=== PATIENT | female | born 1945 | race Caucasian/White ===

== ENCOUNTER → 2017-12-14 | Outpatient (REF) | payer MEDICARE ==
[2017-12-14 18:00] LABS: INFLUENZA A AMPLIFICATION NEGATIVE (NEGATIVE); INFLUENZA B AMPLIFICATION NEGATIVE (NEGATIVE)
== END ==
LOC: M LAB REF 17:08
DX: R05 Cough (principal); R50.9 Fever, unspecified
CPT/HCPCS: 87502

== ENCOUNTER 2020-01-26 08:49 | Day surgery (SDC) | payer MEDICARE ==
[~2020-01-26] VITALS: Ht 170.2 cm; Wt 72.1 kg
[~2020-01-26 08:49] MED LIST: ALFA250T PO; ALLE180T33 PO; ATRO0.06 NEB; CALC-190 PO; EQL50TAB2 PO; LECI1CAP PO; LIVA2TAB PO; MONT10TA4 PO; MULTCAP PO; NS 1,000 ML IV ONE; No Historical Meds; PRED10TA2 OR; PRED20TA OR; PRED50TA OR; SPIR1CAP INH; SYMB80AE IN; SYMB80INH INH; VITA-157 PO; VITA500C24 PO; XOPE1.252 IN; ZITH500T OR; [UNRECOGNIZED DRUG - OTHER] PO
[2020-01-26] MEDS ORDERED: propofoL 200 MG/20 ML VIAL As Ordered ONE ×2 (11:01→11:37)
--- NOTE | 2020-01-26 11:49 | ROOR ---
Patient Name: Bora Tan Procedure Date: 01/26/2020 10:55 AM Date of : 1945 Age: 74 Room: [facility] Gender: Female Note Status: Finalized Procedure: Colonoscopy Indications: Positive fecal immunochemical test Providers: Silverio Kemp Jr, MD Referring MD: Disha Quesada DO Requesting Provider: Medicines: Propofol per Anesthesia Complications: No immediate complications. Procedure: Pre-Anesthesia Assessment: - Prior to the procedure, a History and Physical was performed, and patient medications and allergies were reviewed. The patient is competent. The risks and benefits of the procedure and the sedation options and risks were discussed with the patient. All questions were answered and informed consent was obtained. Patient identification and proposed procedure were verified by the physician and the nurse in the pre-procedure area and in the procedure room. Mental Status Examination: alert and oriented. Airway Examination: normal oropharyngeal airway and neck mobility. Respiratory Examination: clear to auscultation. CV Examination: normal. ASA Grade Assessment: II - A patient with mild systemic disease. After reviewing the risks and benefits, the patient was deemed in satisfactory condition to undergo the procedure. The anesthesia plan was to use moderate sedation / analgesia (conscious sedation). Immediately prior to administration of medications, the patient was re-assessed for adequacy to receive sedatives. The heart rate, respiratory rate, oxygen saturations, blood pressure, adequacy of pulmonary ventilation, and response to care were monitored throughout the procedure. The physical status of the patient was re-assessed after the procedure. The Colonoscope was introduced through the anus and advanced to the cecum, identified by appendiceal orifice and ileocecal valve. The colonoscopy was performed without difficulty. The patient tolerated the procedure well. The quality of the bowel preparation was adequate. Findings: The descending colon, transverse colon, cecum, appendiceal orifice and ileocecal valve appeared normal. Four polyps were found in the rectum, transverse colon and ascending colon. The polyps were small in size. These polyps were removed with a hot snare. Resection and retrieval were complete. A medium polyp was found in the ascending colon. The polyp was sessile. The polyp was removed with a hot snare. The polyp was removed with a piecemeal technique using a hot snare. Resection was complete, but the polyp tissue was only partially retrieved. A medium polyp was found in the recto-sigmoid colon. The polyp was semi-sessile. The polyp was removed with a hot snare. Resection and retrieval were complete. A medium polyp was found in the recto-sigmoid colon. The polyp was pedunculated. The polyp was removed with a hot snare. Resection and retrieval were complete. Impression: - The descending colon, transverse colon, cecum, appendiceal orifice and ileocecal valve are normal. - Four small polyps in the rectum, in the transverse colon and in the ascending colon, removed with a hot snare. Resected and retrieved. - One medium polyp in the ascending colon, removed with a hot snare and removed piecemeal using a hot snare. Complete resection. Partial retrieval. - One medium polyp at the recto-sigmoid colon, removed with a hot snare. Resected and retrieved. - One medium polyp at the recto-sigmoid colon, removed with a hot snare. Resected and retrieved. Recommendation: - Repeat colonoscopy date to be determined after pending pathology results are reviewed for surveillance based on pathology results. Silverio Kemp MD Silverio Kemp Jr, MD 01/26/2020 11:49:06 AM Electronically signed by Silverio Kemp Jr, MD Number of Addenda: 0 Note Initiated On: 01/26/2020 10:55 AM Estimated Blood Loss: Estimated blood loss: none.
[2020-01-26 12:17] VITALS: BP 147/89
== END 2020-01-26 12:18 | disposition home or self-care (01) ==
LOC: M OPP 08:49
PROVIDERS: ATTEND Surgery
DX: K62.1 Rectal polyp (principal); D12.3 Benign neoplasm of transverse colon; D12.2 Benign neoplasm of ascending colon; D12.7 Benign neoplasm of rectosigmoid junction; R19.5 Other fecal abnormalities; G47.30 Sleep apnea, unspecified; J44.9 Chronic obstructive pulmonary disease, unspecified; Z79.899 Other long term (current) drug therapy; Z88.0 Allergy status to penicillin; Z87.891 Personal history of nicotine dependence

== ENCOUNTER 2020-07-11 16:55 | Inpatient (IN) | payer MEDICARE ==
[~2020-07-11] VITALS: Ht 170.2 cm; Wt 72.5 kg
[~2020-07-11 16:55] MED LIST changes: -NS 1,000 ML IV ONE
[2020-07-11] MEDS ORDERED: NS 1,000 ML IV ONE (17:45)
[2020-07-11] MEDS ORDERED: ACETAMINOPHEN 325 MG TAB PO ONE (18:00)
[2020-07-11 18:24] LABS: BASO % 0.2 % (0.0-1.0); HEMOGLOBIN 14.5 g/dl (12.0-15.5); LYMPH # 0.6 10^3/uL (1.5-5.0); LYMPH % 3.4 % (24.0-44.0); MEAN CORPUSCULAR HEMOGLOBIN 29.7 pg (27.0-33.0); MEAN CORPUSCULAR HGB CONC 31.5 g/dl (32.0-36.5); MEAN CORPUSCULAR VOLUME 94.3 fl (80.0-96.0); MONO # 0.8 10^3/uL (0.0-0.8); MONO % 4.8 % (0.0-5.0); NEUTROPHILS # 15.1 10^3/uL (1.5-8.5); NEUTROPHILS % 91.1 % (36.0-66.0); PLATELET COUNT, AUTOMATED 198 10^3/uL (150-450); RED BLOOD COUNT 4.88 10^6/uL (4.00-5.40); WHITE BLOOD COUNT 16.6 10^3/uL (4.0-10.0)
[2020-07-11] MEDS ORDERED: ISOVUE-370 76% 100ML VIAL As Ordered ONE (18:26)
[2020-07-11 18:39] LABS: ALBUMIN 3.5 GM/DL (3.2-5.2); BILIRUBIN,DIRECT 0.2 MG/DL (0.0-0.2); BILIRUBIN,TOTAL 0.6 MG/DL (0.2-1.0); C REACTIVE PROTEIN QUANTITATIV 7.03 MG/DL (0.00-0.30)
--- NOTE | 2020-07-11 18:51 | REPVR ---
PROCEDURE INFORMATION: Exam: CT Temporal Bones With Contrast. Exam date and time: 07/11/2020 6:32 PM Age: 75 years old Clinical indication: Pain; Other: Ear; Additional info: Swelling/rednes/pain left ear/mastoid TECHNIQUE: Imaging protocol: Computed tomography images of the temporal bones with intravenous contrast. Radiation optimization: All CT scans at this facility use at least one of these dose optimization techniques: automated exposure control; mA and/or kV adjustment per patient size (includes targeted exams where dose is matched to clinical indication); or iterative reconstruction. Contrast material: ISO 370; Contrast volume: 75 ml; Contrast route: INTRAVENOUS (IV); COMPARISON: No relevant prior studies available. FINDINGS: Right inner ear: Normal. Right ossicles and middle ear: Normal. The middle ear ossicles are intact. Right external auditory canal: Skin thickening demonstrated along the helix of the ear, extending posteriorly along the eminence of the triangular fossa and harrison, and associated with thickening of the skin of the external auditory canal. 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 Primary infection of the ear not excluded. Right facial nerve canal: Normal. Right jugular foramen: No jugular dehiscence. Right carotid canal: No aberrent carotid canal. Right mastoid air cells: Normal. No mastoid effusions. Left inner ear: Normal. Left ossicles and middle ear: See "Right external auditory canal" finding. Left external auditory canal: Normal. Left facial nerve canal: Normal. Left jugular foramen: No jugular dehiscence. Left carotid canal: No aberrent carotid canal. Left mastoid air cells: Normal. No mastoid effusions. Orbits: Opacified left frontoethmoidal complex. Sinuses: Small retention cyst right maxillary sinus. Mild bilateral ethmoid sinusitis. Bones/joints: Degenerative changes C1-C2. Soft tissues: Unremarkable. IMPRESSION: Skin thickening demonstrated along the helix of the ear, extending posteriorly along the eminence of the triangular fossa and harrison, and associated with thickening of the skin of the external auditory canal. 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 Primary infection of the ear not excluded. Electronically signed by: Anselmo Reyes On 07/11/2020 18:51:33 PM
[2020-07-11 19:05] LABS: ERYTHROCYTE SEDIMENTATION RATE 17 mm/hr (0-30)
[2020-07-11] MEDS ORDERED: cefTAZidime 1 GM in D5W MINI-BAG PLUS 50 ML IV ONE (19:45)
[2020-07-11] MEDS ORDERED: MAALOX 30 ML SUSP *UDC PO PRN (20:15)
[2020-07-11] MEDS ORDERED: MOM 30ML SUSPENSION UDC PO PRN (20:15)
[2020-07-11] MEDS ORDERED: ACETAMINOPHEN TAB 650MG DOSE (2X325MG) PO PRN (20:15)
[2020-07-11] MEDS ORDERED: SODIUM CHLORIDE 0.9% 1000ML IV SCH (20:15)
[2020-07-11] MEDS ORDERED: ACET-683 PO (20:33)
[2020-07-11 20:40] LABS: INR 0.99; PROTHROMBIN TIME 13.3 SECONDS (11.8-14.0)
--- NOTE | 2020-07-11 22:53 | HPEPDOC ---
[facility] Medical History & Physical Date of Admission Jul 11, 2020 Date of Service: Jul 11, 2020 Primary Care Physician: CHI ALBA DO Attending Physician: JERARDO ACE MD History and Physical TIME OF SERVICE: 935pm CHIEF COMPLAINT: ear pain HISTORY OF PRESENT ILLNESS: This patient presented w c/o of left ear itching which didnt improve w cortisol cream. She is unable to remember how long she has had that symptom, but today she developed ear swelling, pain and redness along w f/c and a headache affecting the back of her head. She denies having discharge from her ears, c/ n/v/d or sweating. CT showed malignant otitis externa; ORTEGA Jacobsen discussed the case w who recommended ciprodrex and abx. 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 HOME MEDICATIONS: Please see below. PHYSICAL EXAM Vital Signs Date Time Temp Pulse Resp B/P (MAP) Pulse Ox O2 Delivery O2 Flow Rate FiO2 07/11/20 16:55 102.1 102 18 138/65 (89) 92 Room Air GENERAL APPEARANCE: well-nourished / well developed /NAD INTEGUMENT: the left ear and surrounding area are red HEENT: no scleral icterus / left ear is red, warm and swollen, w palpable preauricular LN, no + light reflex in left ear no discharge coming out of left ear / toung midline, tonsils not hyperemic or enlarged CARDIOVASCULAR: RRR/NMRG / radial pulses intact LUNGS: CTAB on RA MUSCULOSKELETAL: JOSESITO x 4 NEUROLOGICAL: CN -12 intact / speech not dysarthric PSYCHIATRIC: A&Ox 3 /able to understand and follow all commands LABORATORY DATA: 07/11/20 17:43 Immature Granulocyte % (Auto) 0.5, Neutrophils (%) (Auto) 91.1H, Lymphocytes (%) (Auto) 3.4L, Monocytes (%) (Auto) 4.8, Eosinophils (%) (Auto) 0.0, Basophils (%) (Auto) 0.2, Neutrophils # (Auto) 15.1H, Lymphocytes # (Auto) 0.6L, Monocytes # (Auto) 0.8, Eosinophils # (Auto) 0.0, Basophils # (Auto) 0.0, Nucleated Red Blood Cells % (auto) 0.0, Erythrocyte Sedimentation Rate 17, Lactic Acid Level 1.3, Total Bilirubin 0.6, Direct Bilirubin 0.2, Aspartate Amino Transf (AST/SGOT) 27, Alanine Aminotransferase (ALT/SGPT) 24, Alkaline Phosphatase 68, C-Reactive Protein, Quantitative 7.03H, Total Protein 7.0, Albumin 3.5, Albumin/Globulin Ratio 1.0L 07/11/20 20:25: Prothrombin Time 13.3, Prothromb Time International Ratio 0.99 IMAGING: CT head IMPRESSION: Skin thickening demonstrated along the helix of the ear, extending posteriorly along the eminence of the triangular fossa and harrison, and associated with thickening of the skin of the external auditory canal. 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 PLAN: 1 Sepsis 2/2 malignant otitis externa SIRS criterial fever, tachycardia and leukocytosis. CRP elevated, lactic acid wnl Plan: admit to PCU / keep HOBE to 30 degrees / consult / IVF / meropenem and vanc (bc of PCN allergy), Ciprodex ear drops / f/u blood cx / acetaminophen for fever and pain 2 COPD Plan: Symbicort, Spiriva and montelukast 3 Dyslipidemia Plan: pravastatin DVT Px w Lovenox Dispo: home after more than 2 midnights stay Home Medications Scheduled Clinton (Clinton) 250 Mg Tablet, 250 MG PO DAILY Budesonide/Formoterol (Symbicort 80-4.5 Mcg Inhaler) 6.9 Gm Hfa.aer.ad, 2 PUFF INH BID Calcium Carbonate/Vitamin D3 (Calcium 1,000 + D3 Caplet) 1 Each Tablet, 1 TAB PO DAILY Lecithin, Soy (Lecithin) 400 Mg Capsule, 400 MG PO DAILY Montelukast Sodium (Montelukast Sodium) 10 Mg Tablet, 10 MG PO DAILY Multivitamin (Multivitamins) 1 Each Capsule, 1 CAP PO DAILY Pitavastatin Calcium (Livalo) 2 Mg Tablet, 2 MG PO DAILY Tiotropium [place] (Spiriva) 18 Mcg Cap.w.dev, 18 MCG INH DAILY Vitamin B Complex (Vitamin B Complex) 1 Each Tablet, 1 TAB PO DAILY Vitamin E (Dl,Tocopheryl Acet) (Vitamin E) 400 Unit Capsule, 400 UNIT PO DAILY Scheduled PRN Acetaminophen (Acetaminophen) 500 Mg Tablet, 500 MG PO Q6H PRN for PAIN / FEVER Allergies Coded Allergies: Penicillins (Verified Allergy, Intermediate, hives, 01/23/20) A-FIB/CHADSVASC A-FIB History Current/History of A-Fib/PAF?: No Current PO Anticoag Therapy: JERARDO Wilson MD Jul 11, 2020 22:53
[2020-07-11] MEDS ORDERED: NS 1,000 ML IV SCH (23:00)
[2020-07-12] MEDS ORDERED: MEROPENEM INJ 1 GM in IV 1 EA IV SCH ×2
[2020-07-12] MEDS: CIPRODEX OTIC SUSP 7.5ML AS SCH ×3 (00:09→23:51)
[2020-07-12] MEDS ORDERED: VANCOMYCIN HCL 750 MG, VIAL MATE ADAPTER 1 EACH in D5W 250 ML IV ONE ×2 (01:00→02:00)
[2020-07-12 01:27] LABS: CALCIUM LEVEL 9.1 MG/DL (8.8-10.2); CREATININE FOR GFR 1.28 MG/DL (0.55-1.30); POTASSIUM SERUM 3.9 MEQ/L (3.5-5.1)
[2020-07-12] MEDS: SYMBICORT 80/4.5MCG INHALER 6GM INH SCH ×3 (02:15→20:00)
[2020-07-12 07:35] LABS: HEMATOCRIT 43.3 % (36.0-47.0); HEMOGLOBIN 13.5 g/dl (12.0-15.5); MEAN CORPUSCULAR HEMOGLOBIN 29.9 pg (27.0-33.0); MEAN CORPUSCULAR HGB CONC 31.2 g/dl (32.0-36.5); PLATELET COUNT, AUTOMATED 164 10^3/uL (150-450); RED BLOOD COUNT 4.51 10^6/uL (4.00-5.40)
[2020-07-12] MEDS: TIOTROPIUM INHALER/CAPSULE (SPIRIVA) INH SCH (07:38)
[2020-07-12 07:56] LABS: CALCIUM LEVEL 8.3 MG/DL (8.8-10.2); CREATININE FOR GFR 1.03 MG/DL (0.55-1.30); GLOMERULAR FILTRATION RATE 55.3 (>39); MAGNESIUM LEVEL 1.9 MG/DL (1.8-2.4); POTASSIUM SERUM 4.1 MEQ/L (3.5-5.1)
[2020-07-12] MEDS: MONTELUKAST 10 MG TAB PO SCH (08:58)
[2020-07-12] MEDS: ATORVASTATIN 20 MG TAB PO SCH (08:58)
[2020-07-12] MEDS: ENOXAPARIN 40MG/0.4ML SYRINGE (J1650 PER 10MG) SC SCH (08:59)
[2020-07-12] MEDS ORDERED: CALCIUM/VITAMIN D 500 MG TAB PO SCH (09:00)
--- NOTE | 2020-07-12 11:31 | IPNPDOC ---
Text Note Date of Service The patient was seen on 07/12/20. NOTE 75 yo NON DIABETIC who has been aggresively scratching behind her left ear, ch ronically Suddenly developed significant pain and swelling of the whole aurical and parotid area with fever. No hx of Otitis media or externa No hx of ear discharge or water exposure No facial Nerve weakness ON EXAM she has diffuse edema and erythema of the entire auricle with extension of ertythema into the parotid area and adjacent neck Though the auricle is thickened, there is no fluctuance noted The Ear Canal is open and there is NO GRANULATION Facial nerve is fully functional IMP Cellulitis of Auricle from skin infection, probably from chronic scratching Suspect strep or staph by the bright red erythema of the skin. This is NOT a External Canal process and IS NOT Malignant Otitis Externa which is invasive infection of the bony ear canal associated with diabetes and Facial Nerve involvement She should have 48 hours of IV ABX, head elevation and warm compresses Home on PO and I will follow up next week However, it should be noted that there will be no ENT coverage at this hopsital and 07/15 should she need it, she will need to be transferred to [facility] Laboratory Tests 07/11/20 17:43 07/12/20 07:12 Vital Signs Date Time Temp Pulse Resp B/P (MAP) Pulse Ox O2 Delivery O2 Flow Rate FiO2 07/12/20 09:20 98.6 82 18 164/76 (105) 100 Room Air 07/12/20 06:02 2.0 I&O- Last 24 Hours up to 6 AM 07/12/20 06:00 Intake Total 3750 ml Balance 3750 ml DAISY GRANADO MD Jul 12, 2020 11:31
[2020-07-12] MEDS: MEROPENEM INJ 1 GM in IV 1 EA IV SCH (12:22)
[2020-07-12 19:45] VITALS: BP 137/68
[2020-07-12] MEDS ORDERED: VANCOMYCIN HCL 1,000 MG, VIAL MATE ADAPTER 1 EACH in D5W 250 ML IV SCH (21:00)
[2020-07-12 21:30] VITALS: BP 147/70
[2020-07-13] MEDS: MEROPENEM INJ 1 GM in IV 1 EA IV SCH (01:42)
[2020-07-13 06:40] VITALS: BP 144/77
[2020-07-13] MEDS: SYMBICORT 80/4.5MCG INHALER 6GM INH SCH ×2 (07:38→18:02)
[2020-07-13] MEDS: TIOTROPIUM INHALER/CAPSULE (SPIRIVA) INH SCH (07:38)
[2020-07-13] MEDS ORDERED: CIPRODEX AS (07:50)
[2020-07-13] MEDS ORDERED: DOXY-350 PO (07:50)
[2020-07-13] MEDS ORDERED: DOXYCYCLINE HYCLATE 100MG TABLET PO SCH (09:00)
[2020-07-13] MEDS: ENOXAPARIN 40MG/0.4ML SYRINGE (J1650 PER 10MG) SC SCH (09:40)
[2020-07-13] MEDS: MONTELUKAST 10 MG TAB PO SCH (09:41)
[2020-07-13] MEDS: CIPRODEX OTIC SUSP 7.5ML AS SCH (09:41)
[2020-07-13] MEDS: ATORVASTATIN 20 MG TAB PO SCH (09:42)
[2020-07-13] MEDS ORDERED: CIPRODEX OTIC (10:52)
[2020-07-13] MEDS ORDERED: CALCIUM/VITAMIN D 500 MG TAB PO SCH (12:00)
--- NOTE | 2020-07-13 19:41 | DS.PDOC ---
Discharge Summary General Date of Admission Jul 11, 2020 at 20:10 Date of Discharge 07/13/2020 Discharge Summary PROCEDURES PERFORMED DURING STAY: [None]. ADMITTING DIAGNOSES: 1. DISCHARGE DIAGNOSES: 1. Cellulitis of Auricle from skin infection COMPLICATIONS/CHIEF COMPLAINT: Malignant Otitis Esterna Of Left Ear. HISTORY OF PRESENT ILLNESS: This patient presented w c/o of left ear itching which didnt improve w cortisol cream. She is unable to remember how long she has had that symptom, but today she developed ear swelling, pain and redness along w f/c and a headache affecting the back of her head. She denies having discharge from her ears, c/n/v/d or sweating. CT showed malignant otitis externa; HOSPITAL COURSE: assessed by Dr. DE LEÓN -not malignant otitis externa, diagnosed with cellulitis of auricle from skin infection -IV antibiotics for 48hr and transitioned to oral doxy [id number] and ciprodex drops DISCHARGE MEDICATIONS: Please see below. ALLERGIES: Please see below. PHYSICAL EXAMINATION ON DISCHARGE: VITAL SIGNS: Please see below. General: Pleasant, NAD HEENT: NC, AT. EOMI, no scleral icterus. No pharyngeal erythema, mucous membranes moist. Neck: No lymphadenopathy or JVD CV: RRR, Normal S1 and S2. No murmurs, gallops, or rubs. Resp: CTAB with full breath sounds. No wheezes, crackles, or rhonchi. No dullness to percussion. Abdomen: Bowel sounds present. Soft, NT, ND. Extremities: No swelling or edema. LABORATORY DATA: Please see below. IMAGING: no pending PROGNOSIS: stable ACTIVITY: as tolerated DIET: diabetic DISCHARGE PLAN: f/u with ENT in 1 week DISPOSITION: 01 Home, Self-Care. DISCHARGE INSTRUCTIONS: 1. continue doxy and ciprodex as prescribed ITEMS TO FOLLOWUP ON ON OUTPATIENT: 1. . DISCHARGE CONDITION: [Stable]. TIME SPENT ON DISCHARGE: Greater than minutes. Vital Signs/I&Os Vital Signs Date Time Temp Pulse Resp B/P (MAP) Pulse Ox O2 Delivery O2 Flow Rate FiO2 07/13/20 06:40 98.8 73 20 144/77 (99) 98 Room Air 07/12/20 20:00 2.0 I&O- Last 24 Hours up to 6 AM 07/13/20 06:00 Intake Total 170 ml Output Total 2 ml Balance 168 ml Microbiology Microbiology 07/11/20 Blood Culture - Preliminary, Resulted No Growth after 48 hours. All Specime... 07/11/20 Blood Culture - Preliminary, Resulted No Growth after 48 hours. All Specime... Discharge Medications Scheduled Bradley (Bradley) 250 Mg Tablet, 250 MG PO DAILY, (Reported) Budesonide/Formoterol (Symbicort 80-4.5 Mcg Inhaler) 6.9 Gm Hfa.aer.ad, 2 PUFF INH BID, (Reported) Calcium Carbonate/Vitamin D3 (Calcium 1,000 + D3 Caplet) 1 Each Tablet, 1 TAB PO DAILY, (Reported) Ciprofloxacin/Dexamethasone (Ciprodex Otic Suspension) 7.5 Ml Drops.susp, 4 DROP OTIC BID Doxycycline Monohydrate (Doxycycline) 100 Mg Capsule, 100 MG PO BID Lecithin, Soy (Lecithin) 400 Mg Capsule, 400 MG PO DAILY, (Reported) Montelukast Sodium (Montelukast Sodium) 10 Mg Tablet, 10 MG PO DAILY, (Reported) Multivitamin (Multivitamins) 1 Each Capsule, 1 CAP PO DAILY, (Reported) Pitavastatin Calcium (Livalo) 2 Mg Tablet, 2 MG PO DAILY, (Reported) Tiotropium [place] (Spiriva) 18 Mcg Cap.w.dev, 18 MCG INH DAILY, (Reported) Vitamin B Complex (Vitamin B Complex) 1 Each Tablet, 1 TAB PO DAILY, (Reported) Vitamin E (Dl,Tocopheryl Acet) (Vitamin E) 400 Unit Capsule, 400 UNIT PO DAILY, (Reported) Scheduled PRN Acetaminophen (Acetaminophen) 500 Mg Tablet, 500 MG PO Q6H PRN for PAIN / FEVER, (Reported) Allergies Coded Allergies: Penicillins (Verified Allergy, Intermediate, hives, 01/23/20) SIOBHAN DURAND DO Jul 13, 2020 19:41
== END 2020-07-13 18:30 | disposition home or self-care (01) | DRG 156 ==
LOC: M ED 16:55 → M ED INP 20:10 → M MS5PR 07-12 19:41
PROVIDERS: ADMIT Internal Medicine; ATTEND Internal Medicine
DX: H60.12 Cellulitis of left external ear (principal); Z79.899 Other long term (current) drug therapy; Z88.0 Allergy status to penicillin; J44.9 Chronic obstructive pulmonary disease, unspecified; Z87.891 Personal history of nicotine dependence; E78.5 Hyperlipidemia, unspecified

== ENCOUNTER 2020-08-13 18:53 | Emergency (ER) | payer MEDICARE ==
[~2020-08-13] VITALS: Ht 167.6 cm; Wt 70.5 kg
[~2020-08-13 18:53] MED LIST changes: +ACET-683 PO; +CIPRODEX AS; +CIPRODEX OTIC; +DOXY-350 PO
[2020-08-13] MEDS ORDERED: KETOROLAC 30 MG/ML 1ML VIAL IV ONE (20:45)
[2020-08-13 21:09] LABS: BASO % 0.2 % (0.0-1.0); HEMATOCRIT 47.1 % (36.0-47.0); HEMOGLOBIN 15.3 g/dl (12.0-15.5); LYMPH # 0.9 10^3/uL (1.5-5.0); LYMPH % 5.3 % (24.0-44.0); MEAN CORPUSCULAR HGB CONC 32.5 g/dl (32.0-36.5); MEAN CORPUSCULAR VOLUME 92.4 fl (80.0-96.0); MONO # 0.7 10^3/uL (0.0-0.8); MONO % 4.1 % (0.0-5.0); NEUTROPHILS # 14.9 10^3/uL (1.5-8.5); NEUTROPHILS % 89.9 % (36.0-66.0); PLATELET COUNT, AUTOMATED 203 10^3/uL (150-450); WHITE BLOOD COUNT 16.6 10^3/uL (4.0-10.0)
--- NOTE | 2020-08-13 21:27 | REPVR ---
PROCEDURE INFORMATION: Exam: CT Temporal Bones Without Contrast. Exam date and time: 08/13/2020 8:56 PM Age: 75 years old Clinical indication: Pain; Other: Mastoid; Additional info: Left mastoid erythema tenderness TECHNIQUE: Imaging protocol: Computed tomography images of the temporal bones without contrast. Radiation optimization: All CT scans at this facility use at least one of these dose optimization techniques: automated exposure control; mA and/or kV adjustment per patient size (includes targeted exams where dose is matched to clinical indication); or iterative reconstruction. COMPARISON: CT IAC'S WITH CONTRAST 07/11/2020 6:26 PM FINDINGS: Right inner ear: Normal. Right ossicles and middle ear: Normal. The middle ear ossicles are intact. Right external auditory canal: Normal. Right facial nerve canal: Normal. Right jugular foramen: No jugular dehiscence. Right carotid canal: No aberrent carotid canal. Right mastoid air cells: Normal. No mastoid effusions. Left inner ear: Normal. Left ossicles and middle ear: Normal. The middle ear ossicles are intact. Left external auditory canal: Normal. No soft tissue swelling. Left facial nerve canal: Normal. Left jugular foramen: No jugular dehiscence. Left carotid canal: No aberrent carotid canal. Left mastoid air cells: Normal. No mastoid effusions. Soft tissues: Mild soft tissue swelling in the left periauricular and suboccipital soft tissues. No abscess or subcutaneous gas. IMPRESSION: 1. Mild soft tissue swelling in the left periauricular and suboccipital soft tissues suggesting mild cellulitis. No abscess is seen. 2. No signs of mastoiditis. Electronically signed by: Brennan Camara On 08/13/2020 21:27:08 PM
[2020-08-13 21:31] LABS: C REACTIVE PROTEIN QUANTITATIV 11.8 MG/DL (0.00-0.30); CALCIUM LEVEL 9.5 MG/DL (8.8-10.2); CREATININE FOR GFR 1.1 MG/DL (0.55-1.30); GLOMERULAR FILTRATION RATE 51.3 (>39); POTASSIUM SERUM 4.1 MEQ/L (3.5-5.1)
[2020-08-13] MEDS ORDERED: DOXYCYCLINE HYCLATE 100MG TABLET PO ONE (22:30)
[2020-08-13] MEDS ORDERED: DOXY100C37 PO (22:35)
[2020-08-13 22:45] VITALS: BP 162/74
== END 2020-08-13 23:05 | disposition home or self-care (01) ==
LOC: M ED 18:53
DX: H60.12 Cellulitis of left external ear (principal); L03.211 Cellulitis of face; L03.213 Periorbital cellulitis; Z88.0 Allergy status to penicillin; Z79.899 Other long term (current) drug therapy

== ENCOUNTER 2020-08-15 18:56 | Inpatient (IN) | payer MEDICARE ==
[~2020-08-15] VITALS: Ht 167.6 cm; Wt 70.8 kg
[~2020-08-15 18:56] MED LIST changes: +DOXY100C37 PO
[2020-08-15] MEDS ORDERED: ACETAMINOPHEN TAB 650MG DOSE (2X325MG) PO ONE (19:30)
[2020-08-15 20:06] LABS: BASO % 0.1 % (0.0-1.0); HEMATOCRIT 42.7 % (36.0-47.0); HEMOGLOBIN 13.6 g/dl (12.0-15.5); LYMPH # 0.8 10^3/uL (1.5-5.0); LYMPH % 4.7 % (24.0-44.0); MEAN CORPUSCULAR HEMOGLOBIN 29.2 pg (27.0-33.0); MEAN CORPUSCULAR HGB CONC 31.9 g/dl (32.0-36.5); MEAN CORPUSCULAR VOLUME 91.6 fl (80.0-96.0); MONO # 1.1 10^3/uL (0.0-0.8); MONO % 6.6 % (0.0-5.0); NEUTROPHILS # 14.4 10^3/uL (1.5-8.5); NEUTROPHILS % 87.9 % (36.0-66.0); PLATELET COUNT, AUTOMATED 202 10^3/uL (150-450); RED BLOOD COUNT 4.66 10^6/uL (4.00-5.40); WHITE BLOOD COUNT 16.4 10^3/uL (4.0-10.0)
[2020-08-15 20:24] LABS: CALCIUM LEVEL 8.3 MG/DL (8.8-10.2); CREATININE FOR GFR 1.03 MG/DL (0.55-1.30); GLOMERULAR FILTRATION RATE 55.3 (>39); POTASSIUM SERUM 3.8 MEQ/L (3.5-5.1)
[2020-08-15] MEDS ORDERED: CLINDAMYCIN 600 MG in IV 1 EA IV ONE (20:30)
[2020-08-15 20:37] LABS: ERYTHROCYTE SEDIMENTATION RATE 47 mm/hr (0-30)
[2020-08-15] MEDS ORDERED: VITMTA PO (21:01)
[2020-08-15] MEDS ORDERED: ALLE180T33 PO (21:01)
[2020-08-15] MEDS ORDERED: DOXY100T27 PO (21:01)
[2020-08-15] MEDS ORDERED: PROAAER10 INH (21:01)
--- NOTE | 2020-08-15 23:12 | HPEPDOC ---
General Date of Admission Aug 15, 2020 at 20:50 Date of Service: Aug 15, 2020 Attending Physician: DIAZ MCMILLAN MD Chief Complaint The patient is a 75-year-old female admitted with a reason for visit of Cellulitis Of Auricle Of Left Ear And Face,Dermati. History of Present Illness 75 y/o elderly female presents to ER with cc of L ear redness and swelling. Pt states that this started back on 07/11/2020 when she was admitted for L auricle cellulitis given IV merrem and vanco b/c of (PCN allergy) and transitioned to PO doxy and ciprodex ear drop. Pt presented back to ER 08/13 where she was assessed in ER and given 1 dose of doxy and toradol and sent home with doxy 100mg PO BID and to follow up with PCP. Pt states that she came back to ER today b/c the symptoms got worse. Her L ear is still swollen and red and now theres redness over her L cheek and her L upper eyelid. She states that shes been putting cortisone cream on them which help with itching. Currently, they feel warm but no itching or pain. She denies any hearing loss, drainage from ear, vision changes, headaches. She states shes had some fever and chills but denies n/v/d, CP, sob, abdominal discomfort. ROS: All 12 points have been reviewed. See HPI PMHX: COPD Hirsutism Vit D def Psurgical Hx: Sigmoidoscopy 1996 Tonsillectomy and adenoidectomy at 5 y/o Social hx: Smoked less than half a pack a day. Does not remember when she started smoking but states she quit in 2010. Denies ETOH or illicit drug use ALL: see above Home Medications Scheduled Sunflower (Sunflower) 250 Mg Tablet, 250 MG PO DAILY, (Reported) Budesonide/Formoterol (Symbicort 80-4.5 Mcg Inhaler) 6.9 Gm Hfa.aer.ad, 2 PUFF INH BID, (Reported) Calcium Carbonate/Vitamin D3 (Calcium 1,000 + D3 Caplet) 1 Each Tablet, 1 TAB PO DAILY, (Reported) Doxycycline Monohydrate (Doxycycline Monohydrate) 100 Mg Tablet, 100 MG PO BID, (Reported) STARTED 08/14/20 Fexofenadine HCl (Ana Allergy) 180 Mg Tablet, 180 MG PO DAILY, (Reported) Lecithin, Soy (Lecithin) 400 Mg Capsule, 400 MG PO DAILY, (Reported) Montelukast Sodium (Montelukast Sodium) 10 Mg Tablet, 10 MG PO QHS, (Reported) Multivitamins (Thera M Plus Tablet) 1 Each Tablet, 1 TAB PO DAILY, (Reported) Pitavastatin Calcium (Livalo) 2 Mg Tablet, 2 MG PO DAILY, (Reported) Tiotropium [place] (Spiriva) 18 Mcg Cap.w.dev, 18 MCG INH DAILY, (Reported) Vitamin B Complex (Vitamin B Complex) 1 Each Tablet, 1 TAB PO DAILY, (Reported) Vitamin E (Dl,Tocopheryl Acet) (Vitamin E) 400 Unit Capsule, 400 UNIT PO DAILY, (Reported) Scheduled PRN Acetaminophen (Acetaminophen) 500 Mg Tablet, 500 MG PO Q6H PRN for PAIN / FEVER, (Reported) Albuterol Sulfate (Proair Hfa) 8.5 Gm Hfa.aer.ad, 2 PUFF INH Q4H PRN for SHOR TNESS OF BREATH, (Reported) Allergies Coded Allergies: Penicillins (Verified Allergy, Intermediate, hives, 01/23/20) A-FIB/CHADSVASC A-FIB History Current/History of A-Fib/PAF?: No Current PO Anticoag Therapy: No Physical Examination General Exam: Positive: Alert, Cooperative, No Acute Distress Eye Exam: Positive: PERRLA, EOMI, Sclera icteric; Negative: Conjunctiva & lids normal (L eye lid has redness), Ptosis ENT Exam: Positive: Atraumatic, Mucous membr. moist/pink, Pharynx Normal, Tongue Midline, Nares Patent; Negative: Pharyngeal Edema, Ext Auditory Canal Nml (L auricle is swollen and eryhtematous; no drainage inside ear canal) Neck Exam: Positive: Supple, +2 carotid pulse wo bruit; Negative: JVD, thyromegaly, Lymphadenopathy Chest Exam: Positive: Clear to auscultation, Normal air movement; Negative: Rales, Rhonchi, Wheezing, Diminished Heart Exam: Positive: Rate Normal, Regular Rhythm, Normal S1, Normal S2; Negative: Gallops, Murmurs, Rubs Abdomen Exam: Positive: Normal bowel sounds, Soft; Negative: Tenderness, Hepatospenomegaly, Mass, Hernia Extremity Exam: Negative: Clubbing, Cyanosis, Edema Skin Exam: Positive: Other skin issue (L auricle eryhtematous and swollen; L cheeck and L eyelid cellulitis ) Vital Signs Vital Signs Date Time Temp Pulse Resp B/P (MAP) Pulse Ox O2 Delivery O2 Flow Rate FiO2 08/15/20 21:05 98.6 08/15/20 20:04 08/15/20 18:57 103 16 93 Room Air Laboratory Data Labs 24H Laboratory Tests 2 08/15/20 19:48: Immature Granulocyte % (Auto) 0.7, Neutrophils (%) (Auto) 87.9H, Lymphocytes (%) (Auto) 4.7L, Monocytes (%) (Auto) 6.6H, Eosinophils (%) (Auto) 0.0, Basophils (%) (Auto) 0.1, Neutrophils # (Auto) 14.4H, Lymphocytes # (Auto) 0.8L, Monocytes # (Auto) 1.1H, Eosinophils # (Auto) 0.0, Basophils # (Auto) 0.0, Nucleated Red Blood Cells % (auto) 0.0, Erythrocyte Sedimentation Rate 47H, Anion Gap 5L, Glomerular Filtration Rate 55.3, Lactic Acid Level 1.0, Calcium Level 8.3L, C-Reactive Protein, Quantitative 19.00H CBC/BMP Laboratory Tests 08/15/20 19:48 Microbiology Microbiology 08/15/20 Blood Culture, Received Pending 08/15/20 Blood Culture, Received Pending Assessment/Plan 75 y/o female admitted for L ear cellulitis that's recurrent and did not respond to doxycycline PO regimen. She's currently on IV clindamycin due to PCN allergy. Plan / VTE VTE Prophylaxis Ordered?: Yes Plan Plan #L ear cellulitis - extension of cellulitis over the L cheek and L eyelid - continue IV clinda - Continue to monitor with daily CBC #Leukocytosis - 16.4 - continue IV clinda - daily CBC monitoring $Hx of COPD - not in exacerbation - Continue home meds DVT ppx: Heparin 5000 units subQ TID GI ppx: none IVF: none. encourage PO intake Diet: regular Code: full GME ATTESTATION GME ATTESTATION My faculty preceptor for this patient encounter was physically present during the encounter and was fully available. All aspects of the patient interview, examination, medical decision making process, and medical care plan development were reviewed and approved by the faculty preceptor. The faculty preceptor is aware and concurs with the plan as stated in the body of this note and will attest to such by his/her cosignature. ATTENDING NOTE IBora, have independently examined this patient and performed my own physical exam, as well as reviewed the documentation and edited where necessary. I have discussed in detail with the resident / student the findings and plan of treatment as documented by the resident / student and edited their note. I agree with their findings and treatment plan and have edited their documentation. I will continue to follow the patient during this hospital stay. Annia Reis DO Aug 15, 2020 23:12 DIAZ MCMILLAN MD Aug 16, 2020 04:04
[2020-08-15] MEDS ORDERED: PILL CUTTER 1 EACH XX PRN (23:15)
[2020-08-15] MEDS ORDERED: ALBUTEROL 90 MCG/ACT 8GM HFA INHALER INH PRN (23:15)
[2020-08-16] MEDS: MONTELUKAST 10 MG TAB PO SCH ×2 (00:58→21:41)
[2020-08-16] MEDS: PRAVASTATIN 10 MG TAB PO SCH ×2 (00:58→21:41)
[2020-08-16] MEDS: HEPARIN SOD (PORCINE) 5000UNITS/ML 1ML VIAL/SYRINGE SC SCH ×4 (01:01→21:41)
[2020-08-16] MEDS: ACETAMINOPHEN TAB 650MG DOSE (2X325MG) PO PRN ×2 (01:02→21:52)
[2020-08-16 05:55] LABS: HEMATOCRIT 41.8 % (36.0-47.0); HEMOGLOBIN 13.6 g/dl (12.0-15.5); MEAN CORPUSCULAR HGB CONC 32.5 g/dl (32.0-36.5); MEAN CORPUSCULAR VOLUME 92.3 fl (80.0-96.0); PLATELET COUNT, AUTOMATED 194 10^3/uL (150-450); RED BLOOD COUNT 4.53 10^6/uL (4.00-5.40); WHITE BLOOD COUNT 15.1 10^3/uL (4.0-10.0)
[2020-08-16 06:18] LABS: CALCIUM LEVEL 8.4 MG/DL (8.8-10.2); CREATININE FOR GFR 1.05 MG/DL (0.55-1.30); GLOMERULAR FILTRATION RATE 54.1 (>39); POTASSIUM SERUM 3.4 MEQ/L (3.5-5.1)
[2020-08-16] MEDS: SYMBICORT 80/4.5MCG INHALER 6GM INH SCH ×2 (07:59→19:30)
[2020-08-16] MEDS ORDERED: POTASSIUM CHLORIDE 10 MEQ SR TABLET PO ONE (09:00)
[2020-08-16] MEDS: TIOTROPIUM INHALER/CAPSULE (SPIRIVA) INH SCH (09:00)
[2020-08-16] MEDS: VITAMIN E 400 INTERNATIONAL UNITS CAP PO SCH (09:43)
[2020-08-16] MEDS: FEXOFENADINE 60 MG TAB PO SCH (09:44)
[2020-08-16] MEDS ORDERED: ISOVUE-370 76% 100ML VIAL As Ordered ONE (11:27)
[2020-08-16] MEDS ORDERED: MEROPENEM INJ 2 GM in NS 100 ML IV SCH (11:45)
--- NOTE | 2020-08-16 11:50 | REPVR ---
PROCEDURE INFORMATION: Exam: CT Maxillofacial With Contrast Exam date and time: 08/16/2020 11:22 AM Age: 75 years old Clinical indication: Mass, lump, or swelling; Other: Left orbit, left cheek, gums, left ear, left periauricule; Additional info: Include lt orbit, lt cheek, gums, lt periauricle, lt ear TECHNIQUE: Imaging protocol: Computed tomography images of the face with intravenous contrast. Radiation optimization: All CT scans at this facility use at least one of these dose optimization techniques: automated exposure control; mA and/or kV adjustment per patient size (includes targeted exams where dose is matched to clinical indication); or iterative reconstruction. Contrast material: ISOVUE 370; Contrast volume: 75 ml; Contrast route: INTRAVENOUS (IV); COMPARISON: No relevant prior studies available. FINDINGS: Orbital cavity: Orbits are normal. Globes are unremarkable. Bones/joints: No acute fracture. Paranasal sinuses: Normal. No air-fluid levels. Soft tissues: There is left periorbital and facial soft tissue induration. There is diffuse soft tissue swelling involving the left superficial here. Soft tissue induration/stranding extends into the left submandibular space. Submandibular/Parotid glands: Inflammatory changes appear to extend into the left parotid gland, which appears hyperemic with overlying soft tissue induration. IMPRESSION: Extensive left periorbital/facial/auricular soft tissue swelling, compatible with extensive cellulitis. Inflammatory change involving the left parotid gland with extension into the left submandibular space may be reactive in nature. Primary parotitis is difficult to exclude. Electronically signed by: Porsche Day On 08/16/2020 11:50:12 AM
[2020-08-16 12:00] VITALS: BP 139/63
[2020-08-16] MEDS: MEROPENEM INJ 1 GM in IV 1 EA IV SCH (12:45)
[2020-08-16] MEDS: NS 1,000 ML IV SCH (12:45)
[2020-08-16] MEDS ORDERED: VANCOMYCIN HCL 1,000 MG, VIAL MATE ADAPTER 1 EACH in D5W 250 ML IV ONE (15:00)
[2020-08-16 15:20] VITALS: BP 154/88
[2020-08-16 16:00] VITALS: BP 154/88
[2020-08-16] MEDS ORDERED: VANCOMYCIN HCL 500 MG in D5W MINI-BAG PLUS 100 ML IV ONE (16:00)
--- NOTE | 2020-08-16 17:31 | IPNPDOC ---
Date Seen The patient was seen on 08/16/20. Progress Note SUBJECTIVE: Patient seen and examined at the bedside in the ED. She denies any vision changes. She does report occipital headache but denies lightheadedness/dizziness or nausea/vomiting/diarrhea. OBJECTIVE VITAL SIGNS: see below GENERAL: alert and oriented, in no apparent distress, pleasant and conversant in full sentences. HEENT: PERRL, EOMI, There is swelling extending periorbitally down her left cheek and extending to her ear. Oral mucous membranes are moist without lesions. NECK: The patient has no noted JVD. No adenopathy is appreciated. No thyromegaly CHEST/LUNGS: Scattered wheezing. Lungs are clear bilaterally without rhonchi or rales. There is no subcutaneous air appreciated. There is no tenderness to the chest wall. HEART:Regular rate and rhythm. No murmurs, rubs, or gallops are appreciated. Distal pulses are 2+. No carotid bruits appreciated. ABDOMEN: Soft, nontender, and nondistended. Bowel sounds are positive. No organomegaly is appreciated. No masses are appreciated. There are no peritoneal signs. There is no [place] sign. EXTREMITIES: No peripheral edema. There is no focal long bone tenderness or deformity. SKIN: The patients skin is warm and dry, without rashes or lesions. PSYCHIATRIC: AAO x 3, normal mood/affect NEUROLOGIC: The patient has 5/5 strength to the upper and lower extremities bilaterally. Sensation is intact throughout. Deep tendon reflexes are 2+ in all four extremities. There are no deficits to the cranial nerves. No other obvious focal deficits LABORATORY DATA, IMAGING STUDIES, MICROBIOLOGY: Please see below. IMAGING: CT MAXILLOFACIAL WITH CONTRAST: FINDINGS: Orbital cavity: Orbits are normal. Globes are unremarkable. Bones/joints: No acute fracture. Paranasal sinuses: Normal. No air-fluid levels. Soft tissues: There is left periorbital and facial soft tissue induration. There is diffuse soft tissue swelling involving the left superficial here. Soft tissue induration/stranding extends into the left submandibular space. Submandibular/Parotid glands: Inflammatory changes appear to extend into the left parotid gland, which appears hyperemic with overlying soft tissue induration. IMPRESSION: Extensive left periorbital/facial/auricular soft tissue swelling, compatible with extensive cellulitis. Inflammatory change involving the left parotid gland with extension into the left submandibular space may be reactive in nature. Primary parotitis is difficult to exclude. DVT prophylaxis ordered?: Lovenox ASSESSMENT AND PLAN: This is a 75 YO F with hx of COPD who presented with left ear, cheek and eye swelling s/p multiple failed antibiotics who presents with worsened swelling concerning for periorbital cellulitis. PROBLEMS: 1. Periorbital cellulitis: s/p multiple antibiotic failures -Empiric Vancomycin/Meropenem for now -Procalcitonin pending -IV NS 75cc/hr -Maxiofacial CT demonstrative of cellulitis 2. History of COPD: -Continue home inhalers 3. HLD: -Continue Pravastatin DVT ppx: Heparin DISPOSITION: pending improvement of cellulitis VS, I&O, 24H, Fishbone Vital Signs/I&O Vital Signs Date Time Temp Pulse Resp B/P (MAP) Pulse Ox O2 Delivery O2 Flow Rate FiO2 08/16/20 16:00 98.5 82 17 154/88 (110) 95 Room Air I&O- Last 24 Hours up to 6 AM 08/16/20 06:00 Intake Total 50 ml Balance 50 ml Laboratory Data 24H LABS Laboratory Tests 2 08/15/20 19:48: Immature Granulocyte % (Auto) 0.7, Neutrophils (%) (Auto) 87.9H, Lymphocytes (%) (Auto) 4.7L, Monocytes (%) (Auto) 6.6H, Eosinophils (%) (Auto) 0.0, Basophils (%) (Auto) 0.1, Neutrophils # (Auto) 14.4H, Lymphocytes # (Auto) 0.8L, Monocytes # (Auto) 1.1H, Eosinophils # (Auto) 0.0, Basophils # (Auto) 0.0, Nucleated Red Blood Cells % (auto) 0.0, Erythrocyte Sedimentation Rate 47H, Anion Gap 5L, Glomerular Filtration Rate 55.3, Lactic Acid Level 1.0, Calcium Level 8.3L, C-Reactive Protein, Quantitative 19.00H 08/16/20 05:31: Nucleated Red Blood Cells % (auto) 0.0, Anion Gap 6L, Glomerular Filtration Rate 54.1, Calcium Level 8.4L CBC/BMP Laboratory Tests 08/15/20 19:48 08/16/20 05:31 Microbiology Microbiology 08/15/20 Blood Culture, Received Pending 08/15/20 Blood Culture, Received Pending GME ATTESTATION GME ATTESTATION My faculty preceptor for this patient encounter was physically present during the encounter and was fully available. All aspects of the patient interview, examination, medical decision making process, and medical care plan development were reviewed and approved by the faculty preceptor. The faculty preceptor is aware and concurs with the plan as stated in the body of this note and will attest to such by his/her cosignature. ATTENDING NOTE Patient was seen and examined by me personally with the residents and the students. Agree with the above assessment and plan. ERIC CHI MD Aug 16, 2020 17:31 LIONEL ANTHONY MD Aug 24, 2020 13:57
[2020-08-16 22:00] VITALS: BP 152/82
[2020-08-17] MEDS: MEROPENEM INJ 1 GM in IV 1 EA IV SCH (01:00)
[2020-08-17] MEDS: NS 1,000 ML IV SCH (01:00)
[2020-08-17] MEDS: HEPARIN SOD (PORCINE) 5000UNITS/ML 1ML VIAL/SYRINGE SC SCH ×3 (05:50→21:51)
[2020-08-17] MEDS: ACETAMINOPHEN TAB 650MG DOSE (2X325MG) PO PRN (05:50)
[2020-08-17 06:00] VITALS: BP 149/83
[2020-08-17] MEDS: SYMBICORT 80/4.5MCG INHALER 6GM INH SCH ×2 (07:33→19:33)
[2020-08-17] MEDS: TIOTROPIUM INHALER/CAPSULE (SPIRIVA) INH SCH (07:34)
[2020-08-17] MEDS: VANCOMYCIN HCL 750 MG, VIAL MATE ADAPTER 1 EACH in D5W 250 ML IV SCH ×2 (08:38→21:50)
[2020-08-17] MEDS: FEXOFENADINE 60 MG TAB PO SCH (08:38)
[2020-08-17] MEDS ORDERED: diphenhydrAMINE 25MG CAP PO PRN (09:00)
[2020-08-17] MEDS: VITAMIN E 400 INTERNATIONAL UNITS CAP PO SCH (10:24)
[2020-08-17 11:07] LABS: HEMATOCRIT 41.4 % (36.0-47.0); HEMOGLOBIN 13.1 g/dl (12.0-15.5); MEAN CORPUSCULAR HEMOGLOBIN 29.8 pg (27.0-33.0); MEAN CORPUSCULAR HGB CONC 31.6 g/dl (32.0-36.5); MEAN CORPUSCULAR VOLUME 94.1 fl (80.0-96.0); PLATELET COUNT, AUTOMATED 218 10^3/uL (150-450); WHITE BLOOD COUNT 10.2 10^3/uL (4.0-10.0)
[2020-08-17 11:38] LABS: BLOOD UREA NITROGEN 10 MG/DL (7-18); CALCIUM LEVEL 8.7 MG/DL (8.8-10.2); CARBON DIOXIDE LEVEL 31 MEQ/L (21-32); CHLORIDE LEVEL 108 MEQ/L (98-107); CREATININE FOR GFR 0.85 MG/DL (0.55-1.30); GLOMERULAR FILTRATION RATE > 60.0 (>39); GLUCOSE, FASTING 63 MG/DL (70-100); POTASSIUM SERUM 3.9 MEQ/L (3.5-5.1); SODIUM LEVEL 142 MEQ/L (136-145)
[2020-08-17 14:00] VITALS: BP 141/82
--- NOTE | 2020-08-17 14:48 | IPNPDOC ---
Text Note Date of Service The patient was seen on 08/17/20. NOTE HPI: Ms. Tan is a 75 yo F with a PMHx of COPD who presented with left ear, cheek, and eye swelling and was diagnosed with periorbital cellulitis. SUBJECTIVE: No acute events overnight. Pt seen and examined at bedside. The pt complains of itching on her L cheek. She states that the L cheek feels less hot than it did yesterday and she put a cool washcloth on it which helped. Pt says that her headache has improved. She reports that swelling of the left eye makes it difficult to open the eye fully. She denies any hearing changes, ear pain, tinnitus, eye pain, or vision changes. Maxillofacial CT shows extensive cellulitis with likely reactive changes of L parotid gland. OBJECTIVE: VITAL SIGNS: please see below. GENERAL: Pt was seen sitting in bed comfortably in no acute distress. HEENT: NC, AT, no scleral icterus, no pharyngeal erythema. NECK: No JVD or lymphadenopathy appreciated. CV: RRR, no murmurs, rubs, or gallops RESP: CTAB, no rales, rhonchi, or wheezes. ABDOMEN: soft, non tender, non distended, bowel sounds present in all quadrants. EXTREMITIES: no swelling or edema. SKIN: skin on L cheek and ear is erythematous and warm. Arm of glasses was sharp and irritating the top of the L ear. PSYCH: AAOx3, normal mood and affect. LABORATORY: please see below. MICROBIOLOGY: blood cultures pending. IMAGING: -CT MAXILLOFACIAL with CONTRAST 08/16/2020: Impression "Extensive left periorbital/facial/auricular soft tissue swelling, compatible with extensive cellulitis. Inflammatory change involving the left parotid gland with extension into the left submandibular space may be reactive in nature. Primary parotitis is difficult to exclude." ASSESSMENT/PLAN: Ms. Tan is a 75yo F with a PMHx of COPD, that presented with left ear, cheek, and eye swelling concerning for periorbital cellulitis. #. Periorbital cellulitis s/p multiple antibiotic failures possibly 2/2 to irritation from a sharp part of the arm of her glasses on top of L ear -Pt received cephalosporin 1 month ago with no adverse reaction, therefore despite listed penicillin allergy meropenem switched to ceftriaxone today -Despite neg MRSA vancomycin continued for now due to involvement of skin overlying left eye -Procalcitonin pending -On presentation, her CRP was 19 and WBC was 16.4. As of today her WBC was 10.2. -IVF discontinued -Maxillofacial CT demonstrative of cellulitis -Pt given PRN cetirizine for facial pruritis after receiving one dose of benadryl #. COPD -Continue home inhalers #. HLD -Continue pravastatin DVT Prophylaxis: Heparin SQ q8h DISPOSITION: home pending continued improvement of cellulitis VS,Fishbone, I+O VS, Fishbone, I+O Laboratory Tests 08/17/20 10:56 Vital Signs Date Time Temp Pulse Resp B/P (MAP) Pulse Ox O2 Delivery O2 Flow Rate FiO2 08/17/20 14:00 98.8 77 16 141/82 (101) 98 08/17/20 06:00 Nasal Cannula 1.0 I&O- Last 24 Hours up to 6 AM 08/17/20 06:00 Intake Total 3542 ml Output Total 1250 ml Balance 2292 ml GME ATTESTATION GME ATTESTATION My faculty preceptor for this patient encounter was physically present during the encounter and was fully available. All aspects of the patient interview, examination, medical decision making process, and medical care plan development were reviewed and approved by the faculty preceptor. The faculty preceptor is aware and concurs with the plan as stated in the body of this note and will attest to such by his/her cosignature. ATTENDING NOTE Patient was seen and examined by me personally with the residents and the students. Agree with the above assessment and plan. YG LUCAS OMS-3 Aug 17, 2020 14:48 LIONEL ANTHONY MD Aug 24, 2020 13:58
[2020-08-17] MEDS: MONTELUKAST 10 MG TAB PO SCH (21:50)
[2020-08-17] MEDS: PRAVASTATIN 10 MG TAB PO SCH (21:50)
[2020-08-17 22:00] VITALS: BP 146/82
[2020-08-18] MEDS: HEPARIN SOD (PORCINE) 5000UNITS/ML 1ML VIAL/SYRINGE SC SCH (05:54)
[2020-08-18 06:00] VITALS: BP 106/77
[2020-08-18 06:18] LABS: BASO # 0.1 10^3/uL (0.0-0.2); BASO % 0.9 % (0.0-1.0); EOS # 0.3 10^3/uL (0.0-0.5); EOS % 3.5 % (0.0-3.0); HEMATOCRIT 41.4 % (36.0-47.0); HEMOGLOBIN 12.8 g/dl (12.0-15.5); LYMPH # 2.1 10^3/uL (1.5-5.0); LYMPH % 23.9 % (24.0-44.0); MEAN CORPUSCULAR HEMOGLOBIN 28.4 pg (27.0-33.0); MEAN CORPUSCULAR HGB CONC 30.9 g/dl (32.0-36.5); MONO # 0.5 10^3/uL (0.0-0.8); MONO % 5.2 % (0.0-5.0); NEUTROPHILS # 5.7 10^3/uL (1.5-8.5); NEUTROPHILS % 63.6 % (36.0-66.0); PLATELET COUNT, AUTOMATED 233 10^3/uL (150-450); WHITE BLOOD COUNT 8.9 10^3/uL (4.0-10.0)
[2020-08-18 06:42] LABS: BLOOD UREA NITROGEN 12 MG/DL (7-18); CALCIUM LEVEL 8.6 MG/DL (8.8-10.2); CARBON DIOXIDE LEVEL 28 MEQ/L (21-32); CHLORIDE LEVEL 108 MEQ/L (98-107); CREATININE FOR GFR 0.84 MG/DL (0.55-1.30); GLOMERULAR FILTRATION RATE > 60.0 (>39); GLUCOSE, FASTING 89 MG/DL (70-100); POTASSIUM SERUM 4.1 MEQ/L (3.5-5.1); SODIUM LEVEL 142 MEQ/L (136-145)
[2020-08-18] MEDS: SYMBICORT 80/4.5MCG INHALER 6GM INH SCH (07:28)
[2020-08-18] MEDS: TIOTROPIUM INHALER/CAPSULE (SPIRIVA) INH SCH (07:28)
[2020-08-18] MEDS ORDERED: cefTRIAXone SOD 1 GM in D5W MINI-BAG PLUS 50 ML IV SCH (08:00)
[2020-08-18] MEDS: FEXOFENADINE 60 MG TAB PO SCH (08:19)
[2020-08-18] MEDS: VITAMIN E 400 INTERNATIONAL UNITS CAP PO SCH (08:19)
[2020-08-18] MEDS: VANCOMYCIN HCL 750 MG, VIAL MATE ADAPTER 1 EACH in D5W 250 ML IV SCH (09:25)
[2020-08-18] MEDS ORDERED: ZYVO1TAB PO (09:30)
[2020-08-18] MEDS ORDERED: HYDR-3363 PO (10:25)
--- NOTE | 2020-08-18 10:28 | DS.PDOC ---
Discharge Summary General Date of Admission Aug 15, 2020 at 20:50 Date of Discharge August 18, 2020 Primary Care Physician: CHI ALBA DO Attending Physician: JIMENA CARBAJAL MD Discharge Summary PROCEDURES PERFORMED DURING STAY: [None]. ADMITTING DIAGNOSES: 1. Periorbital cellulitis DISCHARGE DIAGNOSES: 1. Periorbital cellulitis COMPLICATIONS/CHIEF COMPLAINT: Cellulitis Of Auricle Of Left Ear And Face, Dermatis HISTORY OF PRESENT ILLNESS: 75 y/o elderly female presents to ER with cc of L ear redness and swelling. Pt states that this started back on 07/11/2020 when she was admitted for L auricle cellulitis given IV merrem and vanco b/c of (PCN allergy) and transitioned to PO doxy and ciprodex ear drop. Pt presented back to ER 08/13 where she was assessed in ER and given 1 dose of doxy and toradol and sent home with doxy 100mg PO BID and to follow up with PCP. Pt states that she came back to ER today b/c the symptoms got worse. Her L ear is still swollen and red and now theres redness over her L cheek and her L upper eyelid. She states that shes been putting cortisone cream on them which help with itching. Currently, they feel warm but no itching or pain. She denies any hearing loss, drainage from ear, vision changes, headaches. She states shes had some fever and chills but denies n/v/d, CP, sob, abdominal discomfort. HOSPITAL COURSE: The patient presented with worsening left ear, cheek and periorbital swelling in the setting of recent antibiotic failures for presumed otitis externa. She was started on empiric vancomycin and meropenem as she has documented penicillin allergy. All other home medications were resumed. On hospital day #2 the patient's swelling had improved. Upon chart review, the patient had received cephalosporin antibiotics before with no adverse effect so she was switched to IV Rocephin. On HD#3 her swelling had improved further and she was determined safe for discharge home on 10-day course of Zyvox. Of note, it was determined that the patient's glasses on the left side were sharp and may have introduced bacteria to her skin, this has been corrected temporarily. 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 DISCHARGE MEDICATIONS: Please see below. ALLERGIES: Please see below. PHYSICAL EXAMINATION ON DISCHARGE: VITAL SIGNS: Please see below. GENERAL: Pt was seen sitting in bed comfortably in no acute distress. HEENT: NC, AT, no scleral icterus, no pharyngeal erythema. NECK: No JVD or lymphadenopathy appreciated. CV: RRR, no murmurs, rubs, or gallops RESP: CTAB, no rales, rhonchi, or wheezes. ABDOMEN: soft, non tender, non distended, bowel sounds present in all quadrants. EXTREMITIES: no swelling or edema. SKIN: skin on L cheek and ear is somewhat erythematous and warm, there is some residual swelling of the left eye but this has improved from days prior PSYCH: AAOx3, normal mood and affect. LABORATORY DATA: Please see below. IMAGING: CT MAXILLOFACIAL with CONTRAST 08/16/2020: Impression "Extensive left periorbital/facial/auricular soft tissue swelling, compatible with extensive cellulitis. Inflammatory change involving the left parotid gland with extension into the left submandibular space may be reactive in nature. Primary parotitis is difficult to exclude." PROGNOSIS: Fair ACTIVITY: [As tolerated]. DIET: Regular DISCHARGE PLAN: Follow up with PCP and Career Services Officer within 7 days. Remain compliant with treatment plan and medications Return to the ER if you experience any problems DISPOSITION: Home DISCHARGE INSTRUCTIONS: 1. Continue Zyvox for 10 days 2. Follow up with PCP within 7 days ITEMS TO FOLLOWUP ON ON OUTPATIENT: 1. None DISCHARGE CONDITION: [Stable]. TIME SPENT ON DISCHARGE: 35 minutes. Vital Signs/I&Os Vital Signs Date Time Temp Pulse Resp B/P (MAP) Pulse Ox O2 Delivery O2 Flow Rate FiO2 08/18/20 06:00 98.8 71 18 106/77 (87) 93 Room Air 08/17/20 06:00 1.0 I&O- Last 24 Hours up to 6 AM 08/18/20 06:00 Intake Total 2345 ml Output Total 2425 ml Balance -80 ml Laboratory Data Labs 24H Laboratory Tests 2 08/17/20 10:25: Methicillin-Resist S.aureus DNA PCR NOT DETECTED 08/17/20 10:56: Nucleated Red Blood Cells % (auto) 0.0, Anion Gap 3L, Glomerular Filtration Rate > 60.0, Calcium Level 8.7L 08/18/20 05:50: Nucleated Red Blood Cells % (auto) 0.0, Anion Gap 6L, Glomerular Filtration Rate > 60.0, Calcium Level 8.6L, Immature Granulocyte % (Auto) 2.9, Neutrophils (%) (Auto) 63.6, Lymphocytes (%) (Auto) 23.9L, Monocytes (%) (Auto) 5.2H, Eosinophils (%) (Auto) 3.5H, Basophils (%) (Auto) 0.9, Neutrophils # (Auto) 5.7, Lymphocytes # (Auto) 2.1, Monocytes # (Auto) 0.5, Eosinophils # (Auto) 0.3, Basophils # (Auto) 0.1 08/18/20 07:52: C-Reactive Protein, Quantitative 8.18H, Vancomycin Level Trough 13.8 CBC/BMP Laboratory Tests 08/17/20 10:56 08/18/20 05:50 Microbiology Microbiology 08/15/20 Blood Culture - Preliminary, Resulted No Growth after 48 hours. All Specime... 08/15/20 Blood Culture - Preliminary, Resulted No Growth after 48 hours. All Specime... Discharge Medications Scheduled Evans (Evans) 250 Mg Tablet, 250 MG PO DAILY, (Reported) Budesonide/Formoterol (Symbicort 80-4.5 Mcg Inhaler) 6.9 Gm Hfa.aer.ad, 2 PUFF INH BID, (Reported) Calcium Carbonate/Vitamin D3 (Calcium 1,000 + D3 Caplet) 1 Each Tablet, 1 TAB PO DAILY, (Reported) Fexofenadine HCl (Ana Allergy) 180 Mg Tablet, 180 MG PO DAILY, (Reported) Hydroxyzine HCl (Hydroxyzine HCl) 25 Mg Tablet, 25 MG PO QHS for itching Lecithin, Soy (Lecithin) 400 Mg Capsule, 400 MG PO DAILY, (Reported) Linezolid (Zyvox) 600 Mg Tablet, 1 TAB PO BID with food Montelukast Sodium (Montelukast Sodium) 10 Mg Tablet, 10 MG PO QHS, (Reported) Multivitamins (Thera M Plus Tablet) 1 Each Tablet, 1 TAB PO DAILY, (Reported) Pitavastatin Calcium (Livalo) 2 Mg Tablet, 2 MG PO DAILY, (Reported) Tiotropium Superior (Spiriva) 18 Mcg Cap.w.dev, 18 MCG INH DAILY, (Reported) Vitamin B Complex (Vitamin B Complex) 1 Each Tablet, 1 TAB PO DAILY, (Reported) Vitamin E (Dl,Tocopheryl Acet) (Vitamin E) 400 Unit Capsule, 400 UNIT PO DAILY, (Reported) Scheduled PRN Acetaminophen (Acetaminophen) 500 Mg Tablet, 500 MG PO Q6H PRN for PAIN / FEVER, (Reported) Albuterol Sulfate (Proair Hfa) 8.5 Gm Hfa.aer.ad, 2 PUFF INH Q4H PRN for SHORTNESS OF BREATH, (Reported) Allergies Coded Allergies: Penicillins (Verified Allergy, Intermediate, hives, 01/23/20) GME ATTESTATION GME ATTESTATION My faculty preceptor for this patient encounter was physically present during the encounter and was fully available. All aspects of the patient interview, examination, medical decision making process, and medical care plan development were reviewed and approved by the faculty preceptor. The faculty preceptor is aware and concurs with the plan as stated in the body of this note and will attest to such by his/her cosignature. ATTENDING NOTE I, Jimena Carbajal, have independently examined this patient and performed my own physical exam, as well as reviewed the documentation and edited where necessary. I have discussed in detail with the resident / student the findings and plan of treatment as documented by the resident / student and edited their note. I agree with their findings and treatment plan and have edited their documentation. I will continue to follow the patient during this hospital stay. Time spent on discharge 39 minutes ERIC CHI MD Aug 18, 2020 10:28 JIMENA CARBAJAL MD Aug 18, 2020 15:29
== END 2020-08-18 12:17 | disposition home or self-care (01) | DRG 155 ==
LOC: M ED 18:56 → M ED INP 20:50 → ENRESERV 08-16 13:40 → M MSPAV 08-16 15:20
PROVIDERS: ADMIT Family Medicine; ATTEND Internal Medicine
DX: H60.12 Cellulitis of left external ear (principal); L03.211 Cellulitis of face; L03.213 Periorbital cellulitis; H00.036 Abscess of eyelid left eye, unspecified eyelid; J44.9 Chronic obstructive pulmonary disease, unspecified; Z79.899 Other long term (current) drug therapy; Z88.0 Allergy status to penicillin; Z87.891 Personal history of nicotine dependence

== ENCOUNTER → 2020-08-30 | Outpatient (REF) | payer MEDICARE ==
[~2020-08-30] MED LIST changes: +DOXY100T27 PO; +HYDR-3363 PO; +PROAAER10 INH; +VITMTA PO; +ZYVO1TAB PO
== END ==
LOC: M LAB REF 12:47
PROVIDERS: ATTEND Internal Medicine
DX: L03.211 Cellulitis of face (principal); J44.9 Chronic obstructive pulmonary disease, unspecified

== ENCOUNTER → 2020-12-17 | Outpatient (REF) | payer MEDICARE ==
[~2020-12-17] MED LIST changes: +CIPR7.5D5 AS; +CIPR7.5D5 OTIC; -CIPRODEX AS; -CIPRODEX OTIC; +MONT10TA10 PO; -MONT10TA4 PO
[2020-12-17 18:30] LABS: ALBUMIN 4.1 GM/DL (3.2-5.2); ALT/SGPT 35 U/L (12-78); BILIRUBIN,TOTAL 0.5 MG/DL (0.2-1.0); BLOOD UREA NITROGEN 18 MG/DL (7-18); C REACTIVE PROTEIN QUANTITATIV 0.73 MG/DL (0.00-0.30); CALCIUM LEVEL 10.2 MG/DL (8.8-10.2); CARBON DIOXIDE LEVEL 33 MEQ/L (21-32); CHLORIDE LEVEL 103 MEQ/L (98-107); COMPLEMENT C3 133 MG/DL (90-180); COMPLEMENT C4 26 MG/DL (10-40); CREATININE FOR GFR 1.21 MG/DL (0.55-1.30); GLOMERULAR FILTRATION RATE 45.9 (>39); GLUCOSE, FASTING 103 MG/DL (70-100); RHEUMATOID FACTOR QUANT 11.4 IU/ML (<15.0); SODIUM LEVEL 142 MEQ/L (136-145); TOTAL PROTEIN 7.4 GM/DL (6.4-8.2)
[2020-12-17 18:31] LABS: BASO % 0.3 % (0.0-1.0); EOS # 0.1 10^3/uL (0.0-0.5); EOS % 0.4 % (0.0-3.0); HEMATOCRIT 50.2 % (36.0-47.0); HEMOGLOBIN 15.1 g/dl (12.0-15.5); LYMPH # 1.1 10^3/uL (1.5-5.0); LYMPH % 9.8 % (24.0-44.0); MEAN CORPUSCULAR HGB CONC 30.1 g/dl (32.0-36.5); MEAN CORPUSCULAR VOLUME 96.5 fl (80.0-96.0); MONO # 0.4 10^3/uL (0.0-0.8); MONO % 3.8 % (0.0-5.0); NEUTROPHILS # 9.9 10^3/uL (1.5-8.5); NEUTROPHILS % 85.1 % (36.0-66.0); PLATELET COUNT, AUTOMATED 237 10^3/uL (150-450); WHITE BLOOD COUNT 11.7 10^3/uL (4.0-10.0)
[2020-12-17 18:46] LABS: CREATININE,RANDOM URINE 96.6 MG/DL; TOTAL PROTEIN,RANDOM URINE 20.3 MG/DL (0.0-12.0)
[2020-12-17 19:09] LABS: ERYTHROCYTE SEDIMENTATION RATE 8 mm/hr (0-30)
[2020-12-18 12:00] LABS: ALBUMIN % 59.5 % (55.8-66.1); ALPHA-1-GLOBULIN % 4.7 % (2.9-4.9); ALPHA-1-GLOBULINS 0.35 GM/DL (0.17-0.41); ALPHA-2-GLOBULINS 0.81 GM/DL (0.42-0.99); ALPHA-2-GLOBULINS % 10.9 % (7.1-11.8); BETA-1-GLOBULINS 0.53 GM/DL (0.28-0.60); BETA-1-GLOBULINS % 7.1 % (4.7-7.2); BETA-2-GLOBULINS 0.37 GM/DL (0.19-0.55); GAMMA GLOBULIN % 12.8 % (11.1-18.8); GAMMA GLOBULINS 0.95 GM/DL (0.65-1.58)
== END ==
LOC: M SFHCRHEU 12:19
PROVIDERS: ATTEND Internal Medicine
DX: M94.8X9 Other specified disorders of cartilage, unspecified sites (principal)

== ENCOUNTER 2021-03-14 10:46 | Emergency (ER) | payer MEDICARE ==
[~2021-03-14] VITALS: Ht 157.5 cm; Wt 72.0 kg
[~2021-03-14 10:46] MED LIST changes: +C 50TAB PO; +MUCI600T31 PO; +MULT-40 PO; +OYST1TAB PO; +PRED20TA PO; -VITA-157 PO; +VITA400C53 PO; +VITAE40CA PO
[2021-03-14] MEDS ORDERED: PRED10TA2 (10:58)
[2021-03-14 15:00] LABS: BASO % 0.2 % (0.0-1.0); EOS % 0.2 % (0.0-3.0); HEMATOCRIT 44.5 % (36.0-47.0); HEMOGLOBIN 13.8 g/dl (12.0-15.5); LYMPH # 1.4 10^3/uL (1.5-5.0); LYMPH % 8.8 % (24.0-44.0); MEAN CORPUSCULAR HEMOGLOBIN 29.4 pg (27.0-33.0); MEAN CORPUSCULAR VOLUME 94.7 fl (80.0-96.0); MONO # 1.5 10^3/uL (0.0-0.8); NEUTROPHILS # 12.9 10^3/uL (1.5-8.5); NEUTROPHILS % 80.7 % (36.0-66.0); PLATELET COUNT, AUTOMATED 186 10^3/uL (150-450)
[2021-03-14 15:14] LABS: ALBUMIN 3.5 GM/DL (3.2-5.2); BILIRUBIN,DIRECT 0.1 MG/DL (0.0-0.2); BILIRUBIN,TOTAL 0.4 MG/DL (0.2-1.0); C REACTIVE PROTEIN QUANTITATIV 13.1 MG/DL (0.00-0.30); TOTAL PROTEIN 7.2 GM/DL (6.4-8.2)
[2021-03-14] MEDS ORDERED: ISOVUE-370 76% 100ML VIAL As Ordered ONE (15:14)
[2021-03-14 15:20] LABS: MONO % 9.6 % (2.0-8.0)
[2021-03-14 15:23] LABS: ERYTHROCYTE SEDIMENTATION RATE 35 mm/hr (0-30)
[2021-03-14 15:49] LABS: RHEUMATOID FACTOR QUANT 13.7 IU/ML (<15.0)
[2021-03-14] MEDS ORDERED: predniSONE 10 MG TAB PO ONE (15:50)
[2021-03-14] MEDS ORDERED: CLINDAMYCIN 600 MG in IV 1 EA IV ONE (15:50)
[2021-03-14] MEDS ORDERED: NS 500 ML IV ONE (16:15)
--- NOTE | 2021-03-14 16:53 | REP ---
INDICATION: FACIAL SWELLING. COMPARISON: Comparison is made with multiple prior CT studies, the most recent of which is from 22 November 2020. The more remote is from July 11, 2020. A total of 4 prior studies have shown inflammatory changes involving the external ear cartilage, infra Juan alert soft tissues, and parotid gland region on the left.. TECHNIQUE: Helical scanning is acquired following the intravenous injection of 100 mL of Isovue 370. Axial 3 mm slices are re-formatted. Coronal and sagittal MPR images are generated. FINDINGS: Digital roustabout crew pusher radiograph shows that the patient is edentulous. On bone window settings, the left frontal sinus is clear. The right frontal sinus is hypoplastic. Ethmoid sinuses and sphenoid sinuses are clear. Mastoid aeration is normal and symmetric. No evidence of mastoiditis. The maxillary sinuses are clear. Bony sinus and orbital margins are intact. Nasal septum deviates to the left with a leftward beak. Nasal turbinates soft tissues are unremarkable. No intraorbital soft tissue lesion is seen. Visualized intracranial structures are unremarkable. No vascular abnormality is seen. On soft tissue window settings, there is again evidence of swelling and inflation of the auriculectomy cartilage on the left with edema and and enlargement of the periauricular soft tissues consistent with cellulitis. The external auditory canal appears widely patent. The middle ear cavity is aerated. No mass effect is seen. There is 1 small postauricular lymph node noted unchanged from July 11, 2020 study. There is subtle edema along the capsule or border of the left parotid gland. No intraparotid mass or nodule is seen. There are 2 small posterior cervical lymph nodes inferior to the level of inflammation. These do not appear pathologically enlarged. The largest of these measures 6 mm in short axis dimension. These are unchanged from July 11, 2020 as well. There is asymmetric mild dermal thickening over the malar soft tissues on the left extending towards the infraorbital region. No intraorbital inflammatory changes are seen. There is no evidence of abscess. 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 No abscess is seen. <Electronically signed by Abraham Strange > 03/14/21 [id number]
[2021-03-14] MEDS ORDERED: ACETAMINOPHEN TAB 650MG DOSE (2X325MG) PO ONE (19:35)
[2021-03-14 22:16] VITALS: BP 155/82
== END 2021-03-14 22:20 | disposition short-term general hospital (02) ==
LOC: M ED 10:46
DX: M94.8X8 Other specified disorders of cartilage, other site (principal); H60.11 Cellulitis of right external ear; I10 Essential (primary) hypertension; E78.5 Hyperlipidemia, unspecified; M54.9 Dorsalgia, unspecified; J44.9 Chronic obstructive pulmonary disease, unspecified; Z87.442 Personal history of urinary calculi; Z99.81 Dependence on supplemental oxygen; Z88.0 Allergy status to penicillin; Z79.899 Other long term (current) drug therapy; Z79.52 Long term (current) use of systemic steroids; Z79.51 Long term (current) use of inhaled steroids
CPT/HCPCS: 36415; 70487; 80047; 80076; 83605; 85025; 85652; 86140; 86256; 86431; 87040; 96365; 96366; 99284; J7512; Q9967; U0002

== ENCOUNTER → 2021-03-25 | Outpatient (REF) | payer MEDICARE ==
[~2021-03-25] MED LIST changes: +PRED10TA2
== END ==
LOC: M LAB REF 17:28
PROVIDERS: ATTEND Internal Medicine
DX: L03.211 Cellulitis of face (principal)

== ENCOUNTER 2021-06-02 12:57 | Emergency (ER) | payer MEDICARE ==
[~2021-06-02] VITALS: Ht 167.6 cm; Wt 69.5 kg
[~2021-06-02 12:57] MED LIST changes: -DOXY100C37 PO; +DOXY1CAP62 PO
[2021-06-02] MEDS ORDERED: CLINDAMYCIN 900 MG in IV 1 EA IV ONE (16:15)
[2021-06-02 16:35] LABS: BASO % 0.2 % (0.0-1.0); EOS % 0.1 % (0.0-3.0); HEMATOCRIT 50.5 % (36.0-47.0); LYMPH # 0.7 10^3/uL (1.5-5.0); LYMPH % 4.7 % (24.0-44.0); MEAN CORPUSCULAR HEMOGLOBIN 29.1 pg (27.0-33.0); MEAN CORPUSCULAR HGB CONC 31.7 g/dl (32.0-36.5); MEAN CORPUSCULAR VOLUME 91.8 fl (80.0-96.0); MONO # 0.6 10^3/uL (0.0-0.8); MONO % 3.9 % (2.0-8.0); NEUTROPHILS # 14.2 10^3/uL (1.5-8.5); NEUTROPHILS % 90.6 % (36.0-66.0); PLATELET COUNT, AUTOMATED 185 10^3/uL (150-450); WHITE BLOOD COUNT 15.6 10^3/uL (4.0-10.0)
[2021-06-02 16:55] LABS: ERYTHROCYTE SEDIMENTATION RATE 4 mm/hr (0-30)
[2021-06-02 16:59] LABS: C REACTIVE PROTEIN QUANTITATIV 2.92 MG/DL (0.00-0.30); CALCIUM LEVEL 9.6 MG/DL (8.8-10.2); CREATININE FOR GFR 1.17 MG/DL (0.55-1.30); GLOMERULAR FILTRATION RATE 47.6 (>39); POTASSIUM SERUM 4.1 MEQ/L (3.5-5.1)
[2021-06-02] MEDS ORDERED: ACETAMINOPHEN TAB 650MG DOSE (2X325MG) PO ONE (17:15)
[2021-06-02] MEDS ORDERED: predniSONE 20 MG TAB PO ONE (18:20)
[2021-06-02] MEDS ORDERED: CLEO300C2 PO (18:25)
[2021-06-02] MEDS ORDERED: PRED20TA PO (18:25)
[2021-06-02 18:30] VITALS: BP 130/77
[2021-06-02 18:42] LABS: RSV AMPLIFICATION NEGATIVE (NEGATIVE)
== END 2021-06-02 18:47 | disposition home or self-care (01) ==
LOC: M ED 12:57
DX: M94.1 Relapsing polychondritis (principal); Z88.0 Allergy status to penicillin; Z79.899 Other long term (current) drug therapy
CPT/HCPCS: 80048; 83605; 85025; 85652; 86140; 87040; 87631; 96374; 99283; J7512

== ENCOUNTER → 2021-06-10 | Outpatient (REF) | payer MEDICARE ==
[~2021-06-10] MED LIST changes: +CLEO300C2 PO
== END ==
LOC: M LAB REF 15:40
PROVIDERS: ATTEND Internal Medicine
DX: L03.211 Cellulitis of face (principal)

== ENCOUNTER → 2021-07-04 | Outpatient (REF) | payer MEDICARE | LOC: M SFHCPLAZ 18:14 | PROVIDERS: ATTEND Internal Medicine Infectious Disease | DX: A46 Erysipelas (principal) ==

== ENCOUNTER → 2021-12-05 | Outpatient (CLI) | payer MEDICARE ==
[~2021-12-05] MED LIST changes: +DOXY-443 PO; -DOXY1CAP62 PO; -MONT10TA10 PO; +MONT10TA97 PO
[2021-12-05 14:43] LABS: BASO # 0.1 10^3/uL (0.0-0.2); BASO % 0.5 % (0.0-1.0); EOS # 0.1 10^3/uL (0.0-0.5); EOS % 1.2 % (0.0-3.0); HEMATOCRIT 47.9 % (36.0-47.0); LYMPH # 1.6 10^3/uL (1.5-5.0); LYMPH % 17.4 % (24.0-44.0); MEAN CORPUSCULAR HEMOGLOBIN 29.8 pg (27.0-33.0); MEAN CORPUSCULAR HGB CONC 31.3 g/dl (32.0-36.5); MEAN CORPUSCULAR VOLUME 95.2 fl (80.0-96.0); MONO # 0.6 10^3/uL (0.0-0.8); MONO % 6.2 % (2.0-8.0); NEUTROPHILS # 6.8 10^3/uL (1.5-8.5); NEUTROPHILS % 74.4 % (36.0-66.0); PLATELET COUNT, AUTOMATED 204 10^3/uL (150-450); RED BLOOD COUNT 5.03 10^6/uL (4.00-5.40); WHITE BLOOD COUNT 9.2 10^3/uL (4.0-10.0)
[2021-12-05 15:15] LABS: ERYTHROCYTE SEDIMENTATION RATE 11 mm/hr (0-30)
[2021-12-05 15:17] LABS: C REACTIVE PROTEIN QUANTITATIV 0.3 MG/DL (0.00-0.30); CALCIUM LEVEL 9.9 MG/DL (8.8-10.2); CREATININE FOR GFR 1.23 MG/DL (0.55-1.30); POTASSIUM SERUM 4.8 MEQ/L (3.5-5.1)
== END ==
LOC: M PLALAB 12:29
PROVIDERS: ATTEND Internal Medicine Infectious Disease
DX: A46 Erysipelas (principal)

== ENCOUNTER → 2022-06-02 | Outpatient (CLI) | payer MEDICARE ==
[2022-06-02 17:54] LABS: BASO # 0.1 10^3/uL (0.0-0.2); BASO % 0.5 % (0.0-1.0); EOS # 0.2 10^3/uL (0.0-0.5); EOS % 2.5 % (0.0-3.0); HEMATOCRIT 45.2 % (36.0-47.0); HEMOGLOBIN 14.2 g/dl (12.0-15.5); LYMPH # 1.9 10^3/uL (1.5-5.0); LYMPH % 19.4 % (24.0-44.0); MEAN CORPUSCULAR HEMOGLOBIN 29.9 pg (27.0-33.0); MEAN CORPUSCULAR HGB CONC 31.4 g/dl (32.0-36.5); MEAN CORPUSCULAR VOLUME 95.2 fl (80.0-96.0); MONO # 0.6 10^3/uL (0.0-0.8); MONO % 6.5 % (2.0-8.0); NEUTROPHILS # 6.8 10^3/uL (1.5-8.5); NEUTROPHILS % 70.9 % (36.0-66.0); PLATELET COUNT, AUTOMATED 215 10^3/uL (150-450); RED BLOOD COUNT 4.75 10^6/uL (4.00-5.40); WHITE BLOOD COUNT 9.6 10^3/uL (4.0-10.0)
[2022-06-02 19:37] LABS: ERYTHROCYTE SEDIMENTATION RATE 8 mm/hr (0-30)
[2022-06-02 19:50] LABS: C REACTIVE PROTEIN QUANTITATIV 0.55 MG/DL (0.00-0.30); CALCIUM LEVEL 9.2 MG/DL (8.8-10.2); CREATININE FOR GFR 1.13 MG/DL (0.55-1.30); GLOMERULAR FILTRATION RATE 49.4 (>39); POTASSIUM SERUM 4.4 MEQ/L (3.5-5.1)
== END ==
LOC: M PLALAB 15:07
PROVIDERS: ATTEND Internal Medicine Infectious Disease
DX: A46 Erysipelas (principal)

== ENCOUNTER 2022-06-12 12:41 | Emergency (ER) | payer MEDICARE ==
[~2022-06-12] VITALS: Ht 167.6 cm; Wt 69.4 kg
[2022-06-12 16:25] LABS: BASO % 0.4 % (0.0-1.0); EOS # 0.1 10^3/uL (0.0-0.5); HEMOGLOBIN 14.8 g/dl (12.0-15.5); LYMPH # 1.4 10^3/uL (1.5-5.0); MEAN CORPUSCULAR HGB CONC 32.2 g/dl (32.0-36.5); MEAN CORPUSCULAR VOLUME 93.3 fl (80.0-96.0); MONO # 0.6 10^3/uL (0.0-0.8); MONO % 5.6 % (2.0-8.0); NEUTROPHILS # 8.5 10^3/uL (1.5-8.5); NEUTROPHILS % 79.6 % (36.0-66.0); PLATELET COUNT, AUTOMATED 216 10^3/uL (150-450); RED BLOOD COUNT 4.93 10^6/uL (4.00-5.40); WHITE BLOOD COUNT 10.7 10^3/uL (4.0-10.0)
[2022-06-12 16:36] VITALS: BP 150/73
[2022-06-12 16:44] LABS: INR 0.93; PROTHROMBIN TIME 12.8 SECONDS (12.7-14.5)
[2022-06-12 17:03] LABS: ALBUMIN 3.8 GM/DL (3.2-5.2); BILIRUBIN,DIRECT 0.1 MG/DL (0.0-0.2); BILIRUBIN,TOTAL 0.4 MG/DL (0.2-1.0); CALCIUM LEVEL 9.6 MG/DL (8.8-10.2); CREATININE FOR GFR 1.11 MG/DL (0.55-1.30); GLOMERULAR FILTRATION RATE 50.5 (>39); POTASSIUM SERUM 4.2 MEQ/L (3.5-5.1)
[2022-06-12] MEDS ORDERED: ISOVUE-370 76% 100ML VIAL As Ordered ONE (17:21)
== END 2022-06-12 18:48 | disposition home or self-care (01) ==
LOC: M ED 12:41
DX: N13.2 Hydronephrosis with renal and ureteral calculous obstruction (principal); R31.9 Hematuria, unspecified; J44.9 Chronic obstructive pulmonary disease, unspecified; Z88.0 Allergy status to penicillin; Z87.891 Personal history of nicotine dependence; Z79.51 Long term (current) use of inhaled steroids; Z79.899 Other long term (current) drug therapy
CPT/HCPCS: 36415; 74177; 76830; 76856; 80048; 80076; 81001; 83690; 85025; 85610; 87086; 99284; Q9967

== ENCOUNTER → 2022-07-07 | Outpatient (CLI) | payer MEDICARE ==
[2022-07-07 13:38] LABS: HEMATOCRIT 45.4 % (36.0-47.0); HEMOGLOBIN 14.1 g/dl (12.0-15.5); MEAN CORPUSCULAR HEMOGLOBIN 29.6 pg (27.0-33.0); MEAN CORPUSCULAR HGB CONC 31.1 g/dl (32.0-36.5); MEAN CORPUSCULAR VOLUME 95.2 fl (80.0-96.0); PLATELET COUNT, AUTOMATED 235 10^3/uL (150-450); RED BLOOD COUNT 4.77 10^6/uL (4.00-5.40); WHITE BLOOD COUNT 10.1 10^3/uL (4.0-10.0)
[2022-07-07 14:17] LABS: CALCIUM LEVEL 9.8 MG/DL (8.8-10.2); CREATININE FOR GFR 1.16 MG/DL (0.55-1.30); POTASSIUM SERUM 4.1 MEQ/L (3.5-5.1)
== END ==
LOC: M PLALAB 09:27 → M PLAIMG 09:27
PROVIDERS: ATTEND Physician Assistant
DX: Z01.818 Encounter for other preprocedural examination (principal); N13.30 Unspecified hydronephrosis

== ENCOUNTER → 2022-07-22 | Outpatient (CLI) | payer MEDICARE ==
[~2022-07-22] MED LIST changes: +CEFA500C2 PO; +CVS1CAP2 PO; +PRESCAP PO; +VITA-16 PO; +[UNRECOGNIZED DRUG - CODE] PO; +[UNRECOGNIZED DRUG - CODE] PO; +[UNRECOGNIZED DRUG - OTHER] PO
== END ==
LOC: M EKG 09:58
PROVIDERS: ATTEND Physician Assistant
DX: Z01.818 Encounter for other preprocedural examination (principal)

== ENCOUNTER → 2022-07-23 | Outpatient (REF) | payer MEDICARE ==
[2022-07-23 15:50] LABS: APPEARANCE, URINE MANUAL CLEAR (CLEAR); COLOR, URINE MANUAL YELLOW (YELLOW)
[2022-07-23 15:51] LABS: BILIRUBIN, URINE MANUAL NEGATIVE (NEGATIVE); BLOOD URINE MANUAL POSITIVE (NEGATIVE); GLUCOSE, URINE (UA) MANUAL NEGATIVE (NEGATIVE); KETONE, URINE MANUAL NEGATIVE (NEGATIVE); LEUKOCYTE ESTERASE, URINE MAN TRACE (NEGATIVE); NITRITE, URINE MANUAL NEGATIVE (NEGATIVE); PROTEIN, URINE MANUAL TRACE mg/dL (NEGATIVE); UROBILINOGEN, URINE MANUAL NORMAL (NORMAL)
[2022-07-23 16:03] LABS: BACTERIA, URINE SMALL AMOUNT; HYALINE CAST, URINE NONE SEEN /lpf (0-1); MUCUS, URINE MOD AMOUNT (NEGATIVE); RBC, URINE TNTC /hpf (0-3); SQUAMOUS EPITHELIAL CELL URINE LARGE AMOUNT /hpf (SMALL AMT); TRANSITIONAL EPI CELLS, URINE SMALL AMOUNT /hpf; WBC, URINE TNTC /hpf (0-3)
== END ==
LOC: M SMT 15:31
PROVIDERS: ATTEND Physician Assistant
DX: Z01.818 Encounter for other preprocedural examination (principal)

== ENCOUNTER → 2022-07-27 | Outpatient (CLI) | payer MEDICARE | LOC: M LABSMTC 11:48 | PROVIDERS: ATTEND Anesthesiology | DX: Z01.812 Encounter for preprocedural laboratory examination (principal); Z20.822 Contact with and (suspected) exposure to COVID-19 ==

== ENCOUNTER 2022-07-30 06:22 | Day surgery (SDC) | payer MEDICARE ==
[~2022-07-30] VITALS: Ht 167.6 cm; Wt 68.4 kg
[~2022-07-30 06:22] MED LIST changes: +CIPROFLOXACIN 400 MG in IV 1 EA IV ONE
[2022-07-30] MEDS ORDERED: LR 1,000 ML IV SCH ×2 (06:40→08:55)
[2022-07-30] MEDS ORDERED: fentaNYL 100 MCG/2 ML INJECTION As Ordered ONE (07:11)
[2022-07-30] MEDS ORDERED: propofoL 200 MG/20 ML VIAL As Ordered ONE (07:17)
[2022-07-30] MEDS ORDERED: LIDOCAINE 2% 100MG/5ML SDV (FOR ANES.) As Ordered ONE (07:17)
[2022-07-30] MEDS ORDERED: ONDANSETRON 4MG 2ML VIAL As Ordered ONE (07:18)
[2022-07-30] MEDS ORDERED: dexameTHASONE 4 MG/ML 1ML VIAL (J1100 PER 1MG) As Ordered ONE (07:18)
[2022-07-30] MEDS ORDERED: ISOVUE-300 61% 50ML VIAL As Ordered ONE (07:24)
[2022-07-30] MEDS ORDERED: ACETAMINOPHEN 1000MG 100ML IV BTL (OFIRMEV) (J0131 PER 10MG) As Ordered ONE (08:12)
[2022-07-30] MEDS ORDERED: oxyCODONE 5MG TAB PO PRN (08:55)
[2022-07-30] MEDS ORDERED: ONDANSETRON 4MG 2ML VIAL IV PRN (08:55)
[2022-07-30] MEDS ORDERED: HYDROMORPHONE HCL 0.5 MG/ 0.5 ML SYRINGE (J1170 PER 1) IV PRN (08:55)
[2022-07-30] MEDS ORDERED: fentaNYL 100 MCG/2 ML INJECTION IV PRN (08:55)
[2022-07-30] MEDS ORDERED: PERCOCET 5MG/325MG TAB PO PRN (09:15)
[2022-07-30] MEDS ORDERED: PHENYLephrine 500MCG 5ML (100MCG/ML) SYRINGE As Ordered ONE (09:41)
[2022-07-30] MEDS ORDERED: ePHEDrine SULFATE 25 MG/5 ML(5MG/ML) SYRINGE As Ordered ONE (09:41)
[2022-07-30 09:50] VITALS: BP 147/97
[2022-08-04 16:08] LABS: Ca Ox Monohydrate 100 % (.); Size 6x4 mm (.)
== END 2022-07-30 10:32 | disposition home or self-care (01) ==
LOC: M SDC 06:22
PROVIDERS: ATTEND Urology
DX: N20.0 Calculus of kidney (principal); J44.9 Chronic obstructive pulmonary disease, unspecified; E78.5 Hyperlipidemia, unspecified; K59.00 Constipation, unspecified; G47.33 Obstructive sleep apnea (adult) (pediatric); Z88.0 Allergy status to penicillin; Z88.8 Allergy status to other drugs, medicaments and biological substances; Z87.891 Personal history of nicotine dependence; Z79.51 Long term (current) use of inhaled steroids; Z79.899 Other long term (current) drug therapy
CPT/HCPCS: 52356; 74420; 82365; C1769; C1894; C2617; J0131; J0744; J1100; J2370; J2405; J3010; Q9967

== ENCOUNTER → 2022-08-21 | Outpatient (CLI) | payer MEDICARE ==
[~2022-08-21] MED LIST changes: -CIPROFLOXACIN 400 MG in IV 1 EA IV ONE
== END ==
LOC: M WHC 10:57
PROVIDERS: ATTEND Internal Medicine
DX: N93.9 Abnormal uterine and vaginal bleeding, unspecified (principal)

== ENCOUNTER 2022-10-07 02:48 | Emergency (ER) | payer MEDICARE ==
[~2022-10-07] VITALS: Ht 167.6 cm; Wt 67.3 kg
[~2022-10-07 02:48] MED LIST changes: -DOXY-350 PO; +DOXY-444 PO
[2022-10-07 10:48] LABS: BASO % 0.4 % (0.0-1.0); EOS # 0.2 10^3/uL (0.0-0.5); EOS % 1.4 % (0.0-3.0); HEMATOCRIT 43.5 % (36.0-47.0); HEMOGLOBIN 13.2 g/dl (12.0-15.5); LYMPH # 1.8 10^3/uL (1.5-5.0); LYMPH % 16.1 % (24.0-44.0); MEAN CORPUSCULAR HEMOGLOBIN 26.4 pg (27.0-33.0); MEAN CORPUSCULAR HGB CONC 30.3 g/dl (32.0-36.5); MONO # 0.6 10^3/uL (0.0-0.8); MONO % 5.3 % (2.0-8.0); NEUTROPHILS # 8.4 10^3/uL (1.5-8.5); NEUTROPHILS % 76.3 % (36.0-66.0); PLATELET COUNT, AUTOMATED 247 10^3/uL (150-450)
[2022-10-07 11:16] LABS: POTASSIUM SERUM 4.6 MMOL/L (3.5-5.1)
[2022-10-07 11:22] LABS: CALCIUM LEVEL 9.5 MG/DL (8.3-10.6)
[2022-10-07 11:25] LABS: CREATININE FOR GFR 1.03 MG/DL (0.55-1.30)
[2022-10-07 13:04] VITALS: BP 163/91
== END 2022-10-07 13:15 | disposition home or self-care (01) ==
LOC: M ED 02:48
DX: N95.0 Postmenopausal bleeding (principal); J44.9 Chronic obstructive pulmonary disease, unspecified; Z87.442 Personal history of urinary calculi; Z87.891 Personal history of nicotine dependence; Z88.0 Allergy status to penicillin; Z88.8 Allergy status to other drugs, medicaments and biological substances; Z79.810 Long term (current) use of selective estrogen receptor modulators (SERMs); Z79.899 Other long term (current) drug therapy; Z79.83 Long term (current) use of bisphosphonates

== ENCOUNTER → 2022-11-04 | Outpatient (CLI) | payer MEDICARE ==
[~2022-11-04] MED LIST changes: +osteo matrix PO
== END ==
LOC: M LABSMTC 09:38
PROVIDERS: ATTEND Anesthesiology
DX: Z01.818 Encounter for other preprocedural examination (principal)

== ENCOUNTER 2022-11-05 07:54 | Day surgery (SDC) | payer MEDICARE ==
[~2022-11-05] VITALS: Ht 170.2 cm; Wt 65.8 kg
[2022-11-05] MEDS ORDERED: LR 1,000 ML IV SCH (08:20)
[2022-11-05 08:49] LABS: HEMATOCRIT 40.9 % (36.0-47.0); HEMOGLOBIN 12.4 g/dl (12.0-15.5); MEAN CORPUSCULAR HEMOGLOBIN 27.1 pg (27.0-33.0); MEAN CORPUSCULAR HGB CONC 30.3 g/dl (32.0-36.5); MEAN CORPUSCULAR VOLUME 89.5 fl (80.0-96.0); PLATELET COUNT, AUTOMATED 278 10^3/uL (150-450); RED BLOOD COUNT 4.57 10^6/uL (4.00-5.40); WHITE BLOOD COUNT 9.8 10^3/uL (4.0-10.0)
[2022-11-05] MEDS ORDERED: LIDOCAINE 2% 100MG/5ML SDV (FOR ANES.) As Ordered ONE (08:59)
[2022-11-05] MEDS ORDERED: fentaNYL 100 MCG/2 ML INJECTION As Ordered ONE (08:59)
[2022-11-05] MEDS ORDERED: propofoL 200 MG/20 ML VIAL As Ordered ONE (08:59)
[2022-11-05] MEDS ORDERED: ONDANSETRON 4MG 2ML VIAL As Ordered ONE (08:59)
[2022-11-05] MEDS ORDERED: MIDAZOLAM INJ 2MG/2ML VIAL As Ordered ONE (08:59)
[2022-11-05] MEDS ORDERED: ACETAMINOPHEN 1000MG 100ML IV BAG As Ordered ONE (10:40)
[2022-11-05] MEDS ORDERED: LIDOCAINE 1% SDV 30ML VIAL As Ordered ONE (10:43)
[2022-11-05 11:43] VITALS: BP 132/70
== END 2022-11-05 12:15 | disposition home or self-care (01) ==
LOC: M SDC 07:54
PROVIDERS: ATTEND Specialist
DX: C54.1 Malignant neoplasm of endometrium (principal); C53.9 Malignant neoplasm of cervix uteri, unspecified; E78.00 Pure hypercholesterolemia, unspecified; E78.5 Hyperlipidemia, unspecified; J44.9 Chronic obstructive pulmonary disease, unspecified; D64.9 Anemia, unspecified; Z88.0 Allergy status to penicillin; Z88.8 Allergy status to other drugs, medicaments and biological substances; Z79.899 Other long term (current) drug therapy
CPT/HCPCS: 36415; 58558; 85027; 88305; J1100; J2405

== ENCOUNTER → 2022-12-08 | Outpatient (CLI) | payer MEDICARE | LOC: M PLARAD 07:34 | PROVIDERS: ATTEND Obstetrics & Gynecology Gynecologic Oncology | DX: C53.1 Malignant neoplasm of exocervix (principal) | CPT/HCPCS: 78815; A9552 ==

== ENCOUNTER 2023-01-31 13:11 | Observation (INO) | payer MEDICARE ==
[~2023-01-31] VITALS: Ht 162.6 cm; Wt 61.5 kg
[2023-01-31] VITALS (9 sets, daily range): BP systolic 105–143; BP diastolic 55–86
[~2023-01-31 13:11] MED LIST changes: +OCUVTAB4 PO
[2023-01-31 14:08] LABS: BASO % 0.3 % (0.0-1.0); EOS # 0.1 10^3/uL (0.0-0.5); EOS % 0.7 % (0.0-3.0); HEMATOCRIT 22.7 % (36.0-47.0); LYMPH # 1.4 10^3/uL (1.5-5.0); LYMPH % 14.2 % (24.0-44.0); MEAN CORPUSCULAR HEMOGLOBIN 24.5 pg (27.0-33.0); MEAN CORPUSCULAR VOLUME 81.7 fl (80.0-96.0); MONO # 0.7 10^3/uL (0.0-0.8); MONO % 6.8 % (2.0-8.0); NEUTROPHILS # 7.9 10^3/uL (1.5-8.5); NEUTROPHILS % 77.5 % (36.0-66.0); PLATELET COUNT, AUTOMATED 247 10^3/uL (150-450); RED BLOOD COUNT 2.78 10^6/uL (4.00-5.40); WHITE BLOOD COUNT 10.2 10^3/uL (4.0-10.0)
[2023-01-31 14:19] LABS: HEMOGLOBIN 6.8 g/dl (12.0-15.5)
[2023-01-31 14:26] LABS: INR 0.92; PROTHROMBIN TIME 12.6 SECONDS (12.5-14.5)
[2023-01-31 14:27] LABS: PARTIAL THROMBOPLASTIN TIME 23.9 SECONDS (24.8-34.2)
[2023-01-31 14:37] LABS: LIPASE 45 U/L (12-53)
[2023-01-31 14:38] LABS: CK-MB VALUE MASS < 1.0 NG/ML (<3.6)
[2023-01-31 14:39] LABS: ALKALINE PHOSPHATASE 73 U/L (46-116); ALT/SGPT 19 U/L (7.0-40); AST/SGOT 29 U/L (<34); BILIRUBIN,DIRECT < 0.1 MG/DL (<0.4); BILIRUBIN,TOTAL 0.3 MG/DL (0.3-1.2); BLOOD UREA NITROGEN 10 MG/DL (9-23); CALCIUM LEVEL 8.3 MG/DL (8.3-10.6); CARBON DIOXIDE LEVEL 31 MMOL/L (20-31); CHLORIDE LEVEL 105 MMOL/L (98-107); CREATININE FOR GFR 1.01 MG/DL (0.55-1.30); GLOMERULAR FILTRATION RATE 56.3 (>39); GLUCOSE, FASTING 96 MG/DL (74-106); POTASSIUM SERUM 4.6 MMOL/L (3.5-5.1); SODIUM LEVEL 140 MMOL/L (136-145); TOTAL PROTEIN 5.4 G/DL (5.7-8.2)
[2023-01-31 14:40] LABS: CPK CREATINE PHOSPHOKINASE 62 U/L (34-145); MB/CK RELATIVE INDEX 1.61 (< OR =4)
[2023-01-31] MEDS ORDERED: CITRTAB15 PO ×2 (16:00)
[2023-01-31] MEDS ORDERED: VITA500C24 PO (16:00)
[2023-01-31] MEDS ORDERED: HOME MED LIST COMPLETE! XX SCH (16:05)
[2023-01-31 16:12] LABS: RSV AMPLIFICATION NEGATIVE (NEGATIVE)
[2023-01-31] MEDS ORDERED: ACETAMINOPHEN TAB 650MG DOSE (2X325MG) PO PRN (16:55)
[2023-02-01 02:20] VITALS: BP 137/82
[2023-02-01 02:35] VITALS: BP 131/64
[2023-02-01 03:20] VITALS: BP 135/87
[2023-02-01 04:20] VITALS: BP 150/89
[2023-02-01 05:20] VITALS: BP 148/78
[2023-02-01 05:58] LABS: HEMATOCRIT 34.1 % (36.0-47.0); MEAN CORPUSCULAR HEMOGLOBIN 26.1 pg (27.0-33.0); MEAN CORPUSCULAR HGB CONC 31.7 g/dl (32.0-36.5); MEAN CORPUSCULAR VOLUME 82.4 fl (80.0-96.0); PLATELET COUNT, AUTOMATED 235 10^3/uL (150-450); RED BLOOD COUNT 4.14 10^6/uL (4.00-5.40)
[2023-02-01 06:00] LABS: HEMOGLOBIN 10.8 g/dl (12.0-15.5)
[2023-02-01 08:00] VITALS: BP 139/67
== END 2023-02-01 11:40 | disposition home or self-care (01) ==
LOC: M ED 13:11 → M ED INP 16:53 → INTOOBSV 16:53 → M PED 22:28
PROVIDERS: ADMIT Obstetrics & Gynecology; ATTEND Obstetrics & Gynecology
DX: D64.9 Anemia, unspecified (principal); C53.9 Malignant neoplasm of cervix uteri, unspecified; J44.9 Chronic obstructive pulmonary disease, unspecified; E78.5 Hyperlipidemia, unspecified
CPT/HCPCS: 36415; 36430; 51701; 70450; 71046; 80048; 80076; 81001; 82550; 82553; 83690; 84484; 85025; 85027; 85610; 85730; 86850; 86900; 86901; 86920; 87086; 87631; 93005; 93041; 94760; 99285; G0378; P9016

== ENCOUNTER → 2023-02-02 | Outpatient (CLI) | payer MEDICARE ==
[~2023-02-02] MED LIST changes: +CITRTAB15 PO
== END ==
LOC: M PLALAB 10:28 → M PLAIMG 10:28
PROVIDERS: ATTEND Urology
DX: N20.0 Calculus of kidney (principal)

== ENCOUNTER → 2023-02-04 | Outpatient (CLI) | payer MEDICARE | LOC: M ONCR 13:00 | PROVIDERS: ATTEND General Practice | DX: C53.1 Malignant neoplasm of exocervix (principal); E78.5 Hyperlipidemia, unspecified; J44.9 Chronic obstructive pulmonary disease, unspecified; Z79.51 Long term (current) use of inhaled steroids; Z87.891 Personal history of nicotine dependence; Z88.0 Allergy status to penicillin; Z88.8 Allergy status to other drugs, medicaments and biological substances ==

== ENCOUNTER → 2023-03-02 | Outpatient (CLI) | payer MEDICARE ==
[~2023-03-02] MED LIST changes: +LIDOCAINE 1% MDV 20ML VIAL As Ordered ONE; +MIDAZOLAM INJ 2MG/2ML VIAL As Ordered ONE; +NS 1,000 ML IV SCH; +ONDA-84 PO; +PROC10TA5 PO; +VANCOMYCIN 1000MG/20ML VIAL As Ordered ONE; +VANCOMYCIN HCL 1,000 MG, VIAL MATE ADAPTER 1 EACH in NS 250 ML IV ONE; +diphenhydrAMINE 50MG/ML VIAL As Ordered ONE; +fentaNYL 100 MCG/2 ML INJECTION As Ordered ONE
[2023-03-02 15:55] VITALS: BP 133/60
== END ==
LOC: M IRPRO 12:40
PROVIDERS: ATTEND Internal Medicine Hematology & Oncology
DX: C53.9 Malignant neoplasm of cervix uteri, unspecified (principal)
CPT/HCPCS: 36561; 99152; 99153; C1769; C1788; C1894; J2250; J3010

== ENCOUNTER 2023-03-06 09:23 | Outpatient (RCR) | payer MEDICARE ==
[2023-03-11] MEDS ORDERED: ONDA-84 PO (10:28)
== END 2023-03-08 ==
LOC: M ONCR 09:23
PROVIDERS: ATTEND General Practice
DX: C53.1 Malignant neoplasm of exocervix (principal)

== ENCOUNTER → 2023-03-06 | Outpatient (REF) | payer MEDICARE ==
[~2023-03-06] MED LIST changes: -LIDOCAINE 1% MDV 20ML VIAL As Ordered ONE; -MIDAZOLAM INJ 2MG/2ML VIAL As Ordered ONE; -NS 1,000 ML IV SCH; -VANCOMYCIN 1000MG/20ML VIAL As Ordered ONE; -VANCOMYCIN HCL 1,000 MG, VIAL MATE ADAPTER 1 EACH in NS 250 ML IV ONE; -diphenhydrAMINE 50MG/ML VIAL As Ordered ONE; -fentaNYL 100 MCG/2 ML INJECTION As Ordered ONE
[2023-03-06 17:29] LABS: PERCENT SATURATION 3.4 % (13.2-45.0)
[2023-03-06 17:31] LABS: FERRITIN 8.1 NG/ML (7.3-270.7)
== END ==
LOC: M LAB REF 16:17
PROVIDERS: ATTEND Internal Medicine
DX: D64.9 Anemia, unspecified (principal)

== ENCOUNTER → 2023-03-17 | Outpatient (POV) | payer MEDICARE ==
[~2023-03-17] VITALS: Ht 167.6 cm; Wt 61.8 kg
[~2023-03-17] MED LIST changes: +FERR32TA
[2023-03-17 12:55] VITALS: BP 144/68
== END ==
LOC: M IRPOV 11:13
PROVIDERS: ATTEND Radiology Diagnostic Radiology
DX: Z45.2 Encounter for adjustment and management of vascular access device (principal); Z88.0 Allergy status to penicillin; Z88.8 Allergy status to other drugs, medicaments and biological substances

== ENCOUNTER → 2023-04-08 | Outpatient (RCR) | payer MEDICARE | LOC: M ONCR 03-09 09:25 | PROVIDERS: ATTEND General Practice | DX: C53.1 Malignant neoplasm of exocervix (principal) ==

== ENCOUNTER → 2023-04-09 | Outpatient (CLI) | payer MEDICARE ==
[~2023-04-09] MED LIST changes: +PROHANCE 279.3MG/ML 15ML VIAL ONE
== END ==
LOC: M PLAIMG 12:06
PROVIDERS: ATTEND General Practice
DX: C53.1 Malignant neoplasm of exocervix (principal)

== ENCOUNTER 2023-04-14 09:06 | Outpatient (RCR) | payer MEDICARE ==
[~2023-04-14 09:06] MED LIST changes: -PROHANCE 279.3MG/ML 15ML VIAL ONE
== END 2023-05-08 ==
LOC: M ONCR 09:06
PROVIDERS: ATTEND General Practice
DX: C53.1 Malignant neoplasm of exocervix (principal)

== ENCOUNTER → 2023-05-13 | Outpatient (CLI) | payer MEDICARE | LOC: M ONCR 09:20 | PROVIDERS: ATTEND General Practice | DX: C53.1 Malignant neoplasm of exocervix (principal); Z92.21 Personal history of antineoplastic chemotherapy; Z92.3 Personal history of irradiation ==

== ENCOUNTER → 2023-06-22 | Outpatient (CLI) | payer MEDICARE | LOC: M PLARAD 13:15 | PROVIDERS: ATTEND General Practice | DX: C53.1 Malignant neoplasm of exocervix (principal); N28.1 Cyst of kidney, acquired | CPT/HCPCS: 78815; A9552 ==

== ENCOUNTER → 2023-07-15 | Outpatient (CLI) | payer MEDICARE | LOC: M ONCR 09:24 | PROVIDERS: ATTEND General Practice | DX: C53.1 Malignant neoplasm of exocervix (principal); Z71.2 Person consulting for explanation of examination or test findings; Z92.21 Personal history of antineoplastic chemotherapy; Z92.3 Personal history of irradiation; Z87.891 Personal history of nicotine dependence; Z88.0 Allergy status to penicillin; Z88.8 Allergy status to other drugs, medicaments and biological substances; Z79.51 Long term (current) use of inhaled steroids; Z79.899 Other long term (current) drug therapy ==

== ENCOUNTER → 2023-08-14 | Outpatient (REF) | payer MEDICARE ==
[2023-08-14 17:12] LABS: PERCENT SATURATION 12.8 % (13.2-45.0)
[2023-08-14 17:15] LABS: FERRITIN 36.9 NG/ML (7.3-270.7)
== END ==
LOC: M LAB REF 16:29
PROVIDERS: ATTEND Internal Medicine
DX: D62 Acute posthemorrhagic anemia (principal); R41.81 Age-related cognitive decline